=== PATIENT | male | born 1945 | race Caucasian/White ===

== ENCOUNTER → 2023-06-05 14:39 | Outpatient (REF) | payer OTHER, SELFPAY | LOC: RAD 14:39 | PROVIDERS: ATTENDING PHYSICIAN Surgery Vascular Surgery; FAMILY PHYSICIAN Family Medicine | DX: I65.21 Occlusion and stenosis of right carotid artery (principal) | CPT/HCPCS: 70496; 70498; Q9967 ==

== ENCOUNTER 2023-06-06 11:04 | Inpatient (IN) | payer OTHER, SELFPAY ==
[2023-06-06 07:33] VITALS: BP 124/87
--- NOTE | 2023-06-06 08:08 | ED.GENMED ---
History of Present Illness
<MIRTA Jackman - Last Filed: 06/06/23 15:35>
General
Chief Complaint: Breathing Problem
Source: patient
Exam Limitations: none
Time Seen by Provider: 06/06/23 07:48
Nursing documentation reviewed up to this point in time: agreed with
Travel History
Have you had any contact with someone who has COVID-19?: No
Do you have any symptoms of coronavirus? Fever > 100 degrees, chills, cough, shortness of breath, sore throat, loss of taste or smell, muscle aches, or headache?: No
History of Present Illness
History of Present Illness:
77 yr. old male w/ hx of COPD presents to the ED with complaints of shortness of breath. Patient complains of worsening shortness of breath for the past week. He has not been able to sleep. He also complains of no appetite. He denies any
actual fever or chills. He has been using inhalers have not been improving his symptoms. He does not normally wear oxygen. He is a former smoker.
Past History
<MIRTA Jackman - Last Filed: 06/06/23 15:35>
Past History
ED Past Medical History: COPD, Hypercholesterolemia and Other (Diverticulitis)
ED Past Surgical History: Urological (TURP August 2017 Dr. Bullock)
Social History
Tobacco: Smoker
Alcohol: None
Drug: None
Living: with family
Review of Systems
<MIRTA Jackman - Last Filed: 06/06/23 15:35>
Review of Systems
Allergies reviewed?: Yes
All Other Systems: ROS reviewed and negative except as documented in HPI and ROS
Constitutional: Denies fever, fatigue or chills
EENT: Reports no symptoms
Respiratory: Reports cough and trouble breathing
Cardiac: Reports no symptoms
ABD/GI: Reports other (decreased appetite )
Musculoskeletal: Reports no symptoms
Skin: Reports no symptoms
Neurological: Reports no symptoms
Hematologic/Lymphatic: Reports no symptoms
Psychiatric: Reports no symptoms
Phy Exam
<MIRTA Jackman - Last Filed: 06/06/23 15:35>
General Physical Exam
General Presentation: no apparent distress
General age: appears stated age
General Skin: warm and dry
General Habitus: normal
General Mental: alert
General Hydration: appears well hydrated
Cardiovascular Exam
Cardiovascular Exam: regular rate/rhythm, no murmur and normal peripheral pulses
Pulmonary Exam
Pulmonary Exam: no respiratory distress, decreased breath sounds and other (+ cough )
Neurological Exam
Neurological Exam: alert and oriented x3
Musculoskeletal Exam
Musculoskeletal Exam: full ROM
Skin Exam
Skin Exam: normal color and warm/dry
Psychiatric Exam
Psychiatric Exam: normal mood/affect
Scores
<MIRTA Jackman - Last Filed: 06/06/23 15:35>
Heart Failure Risk
Heart Failure Risk Score: Not Applicable
Course
<MIRTA Jackman - Last Filed: 06/06/23 15:35>
Orders/Labs/Results
Orders:
Orders
06/06/23 08:02
Albuterol Sulfate [Ventolin Nebules] 7.5 mg INH R NOW STA
Ipratropium Nebs [Atrovent Nebules] 1 mg INH R NOW STA
06/06/23 08:03
Cardiac Monitoring- Treatment ONCE
IV Insert/Care/Rem.- Treatment PRN
Dexamethasone Sod Phosphate [Decadron] 10 mg IV NOW STA
06/06/23 08:04
Electrocardiogram (*1) Stat
Reason for Study: Abdominal Pain
EKG- Treatment ONCE
06/06/23 08:07
Chest [CR Chest - 2 Views ] Urgent
Comment:
Reason For Exam: sob
06/06/23 08:16
Complete Blood Count/With Diff Urgent
Comprehensive Metabolic Panel Urgent
Pro-BNP [NT-proBNP] Urgent
Troponin I Urgent
06/06/23 Lunch
Regular
At Your Request: Full Participation
06/06/23 10:47
Admit/Transfer Patient As Directed
Co-Sign Provider:
Level of Care: Inpatient admission
Assign to:: Telemetry
Physician / Group: hosp
Diagnosis: COPD exacerbation
Reason for Telemetry: Medication for Arrhythmia
Date to Stop Telemetry: 06/08/23
Time to Stop Telemetry: 11:00
Reason for Hospitalization: COPD exacerbation
Expected length of stay greater than two midnights?: Yes
ELOS- Estimated Length of Stay in days: 2
I certify the patient meets the requirements for IP care: Yes
06/06/23 10:48
Code Status As Directed
Resuscitation Status: Do not resuscitate
Reached after discussion with pt or family/Healthcare POA: Yes
06/06/23 10:49
DNR Bracelet Application ONCE
06/06/23 10:53
PULMONARY CONSULT Routine
Consulting Provider: Erik Donohue
Was physician already notified: Yes
06/06/23 10:54
Echo 2D MMode Color/Doppler [Echo 2D MMode Color/Doppler] Routine
Reason for Study: murmur/ MUNOZ
06/06/23 11:59
0.9% Sodium Chloride 1000 ml [Nss] 1,000 ml IV 60 mls/hr
Acetaminophen [Tylenol] 650 mg PO Q4HPRN PRN
Ipratropium/Albuterol Sulfate [Duoneb] 3 ml INH R Q4HPRN PRN
06/06/23 11:59
Activity As Directed
Activity Level: Out of Bed- Chair
Vital Signs As Directed
Frequency: Per unit guidelines
Pulse Ox/spot Check [RESP] Routine
Quantity: 1
DX Deep Vein Thrombosis Video Routine
06/06/23 12:00
Ipratropium/Albuterol Sulfate [Duoneb] 3 ml INH R QID
06/06/23 12:30
Vit C/Vit E/Lutein/Min/Mobile-3 [Ocuvite Softgel] 1 cap PO MoWeFr@0800
06/06/23 13:58
Urine Creatinine Routine
Date Specimen was Collected: 06/06/23
Time Specimen was Collected: 13:51
Urine Osmolality Random [Osmolality, Random Urine] Routine
Date Specimen was Collected: 06/06/23
Time Specimen was Collected: 13:51
Urine Sodium Routine
Date Specimen was Collected: 06/06/23
Time Specimen was Collected: 13:51
06/06/23 16:00
Dexamethasone Sod Phosphate [Decadron] 4 mg IV Q8H
06/06/23 18:00
Enoxaparin Sodium [Lovenox] 40 mg SC QPM
Rosuvastatin Calcium [Crestor] 40 mg PO Q48H
06/06/23 20:00
Budesonide [Pulmicort] 0.25 mg INH R BID
06/07/23 06:00
Basic Metabolic Panel IN AM
Complete Blood Count/No Diff IN AM
06/08/23 11:00
DC Protocol for Telemetry ONCE
Abnormal Lab Results
06/06/23
08:16
RBC 4.62 L 10^6/uL
(4.70-6.10)
MCH 31.8 H pg
(27.0-31.0)
Absolute Lymphs (auto) 1.0 L 10^3/uL
(1.2-3.4)
Lymphocytes % 18.8 L %
(20.5-51.1)
Monocytes % 10.4 H %
(1.7-9.3)
Sodium 128 L mmol/L
(135-145)
Chloride 94 L mmol/L
(98-107)
Creatinine 0.6 L mg/dL
(0.7-1.3)
06/06/23 08:16
06/06/23 08:16
Vital Signs
Initial and Last Documented VS:
Initial Vital Signs
Temp Pulse Resp BP Pulse Ox
98.2 F 73 16 124/87 98
06/06/23 07:33 06/06/23 07:33 06/06/23 07:33 06/06/23 07:33 06/06/23 07:33
Last Documented Vital Signs
Temp Pulse Resp BP Pulse Ox
98.1 F 94 74 120/82 94
06/06/23 12:11 06/06/23 12:15 06/06/23 12:15 06/06/23 12:11 06/06/23 12:15
Chemical Research Worker consulted with Physician
Chemical Research Worker consulted with physician?: Yes
Name of Physician Consulted: Marly
<Jhon Luke, DO - Last Filed: 06/06/23 13:56>
Orders/Labs/Results
Orders:
Orders
06/06/23 08:02
Albuterol Sulfate [Ventolin Nebules] 7.5 mg INH R NOW STA
Ipratropium Nebs [Atrovent Nebules] 1 mg INH R NOW STA
06/06/23 08:03
Cardiac Monitoring- Treatment ONCE
IV Insert/Care/Rem.- Treatment PRN
Dexamethasone Sod Phosphate [Decadron] 10 mg IV NOW STA
06/06/23 08:04
Electrocardiogram (*1) Stat
Reason for Study: Abdominal Pain
EKG- Treatment ONCE
06/06/23 08:07
Chest [CR Chest - 2 Views ] Urgent
Comment:
Reason For Exam: sob
06/06/23 08:16
Complete Blood Count/With Diff Urgent
Comprehensive Metabolic Panel Urgent
Pro-BNP [NT-proBNP] Urgent
Troponin I Urgent
06/06/23 Lunch
Regular
At Your Request: Full Participation
06/06/23 10:47
Admit/Transfer Patient As Directed
Co-Sign Provider:
Level of Care: Inpatient admission
Assign to:: Telemetry
Physician / Group: hosp
Diagnosis: COPD exacerbation
Reason for Telemetry: Medication for Arrhythmia
Date to Stop Telemetry: 06/08/23
Time to Stop Telemetry: 11:00
Reason for Hospitalization: COPD exacerbation
Expected length of stay greater than two midnights?: Yes
ELOS- Estimated Length of Stay in days: 2
I certify the patient meets the requirements for IP care: Yes
06/06/23 10:48
Code Status As Directed
Resuscitation Status: Do not resuscitate
Reached after discussion with pt or family/Healthcare POA: Yes
06/06/23 10:49
DNR Bracelet Application ONCE
06/06/23 10:53
PULMONARY CONSULT Routine
Consulting Provider: Erik Donohue
Was physician already notified: Yes
06/06/23 10:54
Echo 2D MMode Color/Doppler [Echo 2D MMode Color/Doppler] Routine
Reason for Study: murmur/ MUNOZ
06/06/23 11:59
0.9% Sodium Chloride 1000 ml [Nss] 1,000 ml IV 60 mls/hr
Acetaminophen [Tylenol] 650 mg PO Q4HPRN PRN
Ipratropium/Albuterol Sulfate [Duoneb] 3 ml INH R Q4HPRN PRN
06/06/23 11:59
Activity As Directed
Activity Level: Out of Bed- Chair
Vital Signs As Directed
Frequency: Per unit guidelines
Pulse Ox/spot Check [RESP] Routine
Quantity: 1
DX Deep Vein Thrombosis Video Routine
06/06/23 12:00
Ipratropium/Albuterol Sulfate [Duoneb] 3 ml INH R QID
06/06/23 12:30
Vit C/Vit E/Lutein/Min/Mobile-3 [Ocuvite Softgel] 1 cap PO MoWeFr@0800
06/06/23 13:58
Urine Creatinine Routine
Date Specimen was Collected: 06/06/23
Time Specimen was Collected: 13:51
Urine Osmolality Random [Osmolality, Random Urine] Routine
Date Specimen was Collected: 06/06/23
Time Specimen was Collected: 13:51
Urine Sodium Routine
Date Specimen was Collected: 06/06/23
Time Specimen was Collected: 13:51
06/06/23 16:00
Dexamethasone Sod Phosphate [Decadron] 4 mg IV Q8H
06/06/23 18:00
Enoxaparin Sodium [Lovenox] 40 mg SC QPM
Rosuvastatin Calcium [Crestor] 40 mg PO Q48H
06/06/23 20:00
Budesonide [Pulmicort] 0.25 mg INH R BID
06/07/23 06:00
Basic Metabolic Panel IN AM
Complete Blood Count/No Diff IN AM
06/08/23 11:00
DC Protocol for Telemetry ONCE
Abnormal Lab Results
06/06/23
08:16
RBC 4.62 L 10^6/uL
(4.70-6.10)
MCH 31.8 H pg
(27.0-31.0)
Absolute Lymphs (auto) 1.0 L 10^3/uL
(1.2-3.4)
Lymphocytes % 18.8 L %
(20.5-51.1)
Monocytes % 10.4 H %
(1.7-9.3)
Sodium 128 L mmol/L
(135-145)
Chloride 94 L mmol/L
(98-107)
Creatinine 0.6 L mg/dL
(0.7-1.3)
06/06/23 08:16
06/06/23 08:16
Vital Signs
Initial and Last Documented VS:
Initial Vital Signs
Temp Pulse Resp BP Pulse Ox
98.2 F 73 16 124/87 98
06/06/23 07:33 06/06/23 07:33 06/06/23 07:33 06/06/23 07:33 06/06/23 07:33
Last Documented Vital Signs
Temp Pulse Resp BP Pulse Ox
98.1 F 94 74 120/82 94
06/06/23 12:11 06/06/23 12:15 06/06/23 12:15 06/06/23 12:11 06/06/23 12:15
<MIRTA Jackman - Last Filed: 06/06/23 15:35>
MDM/Problems Addressed
Differential Diagnosis Includes:
Not limited to COPD exacerbation, pneumonia, less likely CHF
MDM/Problems Addressed:
Patient with COPD former smoker presents with shortness of breath/dyspnea on exertion. On exam patient has decreased air movement. Patient was given hour-long neb steroids, decadron however with require admission with decreased air movement.
former heavy smoker . In addition patient also is hyponatremic with a sodium of 128.
Chronic conditions affecting care:
copd former smoker
<MIRTA Jackman - Last Filed: 06/06/23 15:35>
*Radiology
Radiology exam reviewed: radiology read reviewed
*Pulse Oximetry
Patient hypoxic: no
*EKG
Interpreted by ED Provider?: Yes
Heart Rate: 65
Rate: normal
Rhythm: sinus
Ischemia: non-specific ST changes
*Critical Care Note
Total Time (30-74mins, 75-104mins- exclusive of procedures): Not Applicable
Data Reviewed
Review of Other/Old Records Reveals: Other (Nuclear stress test from 2019 positive for ischemia; echo from 2021 neg nml LV EF 60-65%)
ED Attending Note
<MIRTA Jackman - Last Filed: 06/06/23 15:35>
-
Portions of this chart may have been created with voice recognition software.� Occasional wrong word or��sound alike� substitutions may have occurred due to the inherent limitations of voice recognition software.
<Jhon Luke DO - Last Filed: 06/06/23 13:56>
ED Attending Note
Patient seen and examined by attending physician: Yes
I performed the substantive portion of visit, reviewed & personally made and approve the management plan that is documented in note by myself or RYNE.: Yes
ED Attending Note:
Patient is a 77-year-old male presents to the emergency department increasing shortness of breath over the past couple days especially on exertion. Patient also developed chest pain on exertion over the past couple of days. Patient denies fever or
chills patient is a cough that is getting worse and is occasionally productive. Patient denies fever or chills. Patient denies any increasing edema. Patient admits to decreased appetite but no GI symptoms otherwise. On physical exam the patient
is tachypneic and is having difficulty completing a sentence before taking a breath. Patient's neck is supple without neck vein distention. Patient has diminished airflow throughout his lung baig with inspiratory and expiratory wheezing.
Patient's chest is nonreproducible tenderness. Heart is regular and distant. Abdomen soft nontender. Extremities without edema or cyanosis. Patient appears to have an exacerbation of his COPD with possible CHF. Patient did have a abnormal
nuclear stress test about 4 years ago which may have consequences for his chest pain. Patient will be admitted. Patient did not improve with steroids and nebulizers but will need further treatment inpatient.
Discharge Plan
Departure
Patient Disposition: Admit
Date of Disposition: 06/06/23
Time of Disposition: 09:34
Admit to: Telemetry
Admit to doctor: hospitalist
Presentation/result/management discussed w/ accepting MD/DO: Hospitalist
Patient with high blood pressure during this ER visit?: Yes
Condition: Fair
Covid-19: Not Applicable
Discharge Problem:
Acute exacerbation of chronic obstructive pulmonary disease, Acute dyspnea
Interventions
Interventions:
*Risk Screen - Suicide Last Done: 06/06/23 07:33
*General Assessment Last Done: 06/06/23 11:00
*Neglect/Abuse Screening Last Done: 06/06/23 11:00
ED- Fall Risk Assessment Last Done: 06/06/23 12:00
*ED COVID-19 Vaccine History Last Done: 06/06/23 07:33
*Nursing Disposition Last Done: 06/06/23 11:00
ED- Cardiac Assessment Last Done: 06/06/23 09:30
ED- Pulmonary Assessment Last Done: 06/06/23 07:57
Discharge Date and Time
Discharge Date/Time: 06/06/23 12:00
[2023-06-06] MEDS: VENTOLIN NEBULES 7.5 MG INH (08:22)
[2023-06-06] MEDS: DECADRON 10 MG IV (08:23)
[2023-06-06] MEDS: ATROVENT NEBULES 1 MG INH (08:23)
[2023-06-06 08:26] LABS: % Basophils 0.5 % (0-2); % Eosinophils 2.7 % (0-6); % Immature Granulocytes 0.2 % (0-0.5); % Lymphocytes 18.8 % (20.5-51.1); % Monocytes 10.4 % (1.7-9.3); % Neutrophils 67.4 % (42.2-75.2); Absolute Eosinophils 0.2 10^3/uL (0-0.7); Absolute Monocytes 0.6 10^3/uL (0.1-0.6); Absolute Neutrophils 3.7 10^3/uL (1.4-6.5); Hematocrit 41.9 % (39.0-52.0); Hemoglobin 14.7 g/dL (13.0-18.0); Mean Corp Hgb Conc. 35.1 g/dL (33.0-37.0); Mean Corpuscular Hgb 31.8 pg (27.0-31.0); Mean Corpuscular Volume 90.7 fL (80.0-94.0); Mean Platelet Volume 8.8 fL (7.4-10.4); Nucleated Red Blood Cells % 0 % (-); Platelet Count 229 10^3/uL (130-400); Red Blood Cell Count 4.62 10^6/uL (4.70-6.10); Red Cell Dist. Width 13.2 % (11.5-14.5); White Blood Cell Count 5.5 10^3/uL (4.8-10.8)
[2023-06-06 08:39] LABS: ALT (SGPT) 30 U/L (0-50); AST (SGOT) 33 U/L (17-59); Alkaline Phosphatase 89 U/L (38-126); Blood Urea Nitrogen 10 mg/dl (9-20); Calcium 8.9 mg/dl (8.4-10.2); Carbon Dioxide 28 mmol/L (22-30); Chloride 94 mmol/L (98-107); Glucose 98 mg/dl (70-99); Potassium 4.2 mmol/L (3.5-5.1); Sodium 128 mmol/L (135-145); Total Bilirubin 0.5 mg/dl (0.2-1.3); Total Protein 6.3 g/dl (6.3-8.2); eGFR > 60.00
[2023-06-06 08:51] LABS: NT-proBNP 27.7 pg/ml; Troponin I < 0.012 ng/ml
--- NOTE | 2023-06-06 11:06 | HPS.HSE ---
Family Physician
-
Family Physician: Anders Randle
Chief Complaint
-
Shortness of breath for the last 6 weeks worse in the last 24 hours
History of Present Illness
77 yr. old male w/ hx of� COPD presents to the ED� with� complaints of� shortness of breath.� Patient complains of worsening shortness of breath for the past week.� He has not been able to sleep.� He also complains of no appetite.� He denies any
actual fever or chills.� He has been using inhalers have not been improving his symptoms.� He does not normally wear oxygen.� He is a former smoker. Quit some 2 years ago he actually states from my interview with he has been short of breath for
last 6 weeks and was actually seen by his PCP and prescribed a steroid course for he got better but shortness of breath and became worse the last couple of days. He was tested last week for COVID and influenza finding it negative. He follows with
Dr. Sue on the pulmonary service but seen infrequently and cannot remember the last time he saw her. He has no cardiac issue history although he has been told he has a heart murmur.
Medical History
Past Medical History
Past Medical History: Reports COPD and Hypercholesterolemia
Past Surgical History: Reports None
Social History
Tobacco: Former Smoker
Alcohol: None
Drug: None
Personal: Single
Living: With Family
Family History
Family History: Not pertinent
Allergies / Home Medications
Allergies reflects when Allergies were last updated in [facility].
Home Medications with original date entered in [facility]
Allergy/Medication List:
Allergies
Allergy/AdvReac Type Severity Reaction Status Date / Time
naproxen Allergy Rash/ankle Verified 06/06/23 07:35
swelling
Home Medications
fluticasone fur. 200 mcg-umeclid 62.5 mcg-vilant 25 mcg inhalat.powder (Trelegy Ellipta) 1 inh IH R DAILY SOB 03/28/21
multivitamin with folic acid 400 mcg tablet (Tab-A-Fifi) 1 tab PO DAILY Supplement 03/28/21
vit C 250 mg-vit E 90 mg-zinc 40 mg-copper 1 uh-byivwt-yjectj capsule (PreserVision AREDS-2) 1 ea PO MOWEFR Supplement 03/28/21
rosuvastatin 40 mg tablet (Crestor) 40 mg PO Q48H 06/06/23
sildenafil 50 mg tablet 50 mg PO DAILY PRN ed 06/06/23
Review of Systems
-
History Source: Patient
Constitutional: Reports See HPI
EENT: Reports See HPI
Respiratory: Reports Trouble Breathing (Worse in the last week but has been ongoing for almost 2 months); Denies Cough or Hemoptysis
Cardiac: Reports No Symptoms
Abdomen/GI: Reports No Symptoms
: Reports No Symptoms
Psych: Reports No Symptoms
Physical Exam
Vital Signs
Vital Signs
Temp Pulse Resp BP Pulse Ox
98.2 F 79 18 124/87 97
06/06/23 07:33 06/06/23 09:30 06/06/23 09:30 06/06/23 07:33 06/06/23 09:30
Physical Exam
General: Well Developed
HEENT: NormoCephalic
Respiratory: Wheezes (Initially presented with bronchospasm now improved after neb treatment and steroid/not on oxygen presently and pulse ox is 90% on room air) and Decreased Breath Sounds
GI: Soft
Musculoskeletal: No Edema
Neuro: Awake
Psych: Calm
Laboratory Results
-
06/06/23 08:16
06/06/23 08:16
Laboratory Results
Total Bilirubin 0.5 mg/dl (0.2-1.3) 06/06/23 08:16
AST 33 U/L (17-59) 06/06/23 08:16
ALT 30 U/L (0-50) 06/06/23 08:16
Alkaline Phosphatase 89 U/L (38-126) 06/06/23 08:16
Troponin I < 0.012 ng/ml 06/06/23 08:16
Data Reviewed
-
Critical Care Time (in minutes): 56
Diagnostic Radiology: Report Reviewed by me (Underlying COPD seen no acute inflammatory process)
Lab Data: Labs Reviewed by me (Sodium 128 rest of chemistries within normal limits CBC okay no leukocytosis)
Impression/Plan
-
IMPRESSION:
77 yr. old male w/ hx of� COPD presents to the ED� with� complaints of� shortness of breath.� Patient complains of worsening shortness of breath for the past week.� He has not been able to sleep.� He also complains of no appetite.� He denies any
actual fever or chills.� He has been using inhalers have not been improving his symptoms.� He does not normally wear oxygen.� He is a former smoker. Quit some 2 years ago he actually states from my interview with he has been short of breath for
last 6 weeks and was actually seen by his PCP and prescribed a steroid course for he got better but shortness of breath and became worse the last couple of days. He was tested last week for COVID and influenza finding it negative. He follows with
Dr. Sue on the pulmonary service but seen infrequently and cannot remember the last time he saw her. He has no cardiac issue history although he has been told he has a heart murmur.
COPD with acute exacerbation
-Chest x-ray clear
-Reformed smoker x 2 years
-Prior history of COPD and follows with pulmonary
-Only medication management is with [facility]
-Had course of steroid management and taper some 6 weeks ago with some improvement but returned
-Tested for COVID and influenza negative last week/vaccinated
-Borderline hypoxia presently off oxygen
-Will treat with IV steroids, DuoNebs, budesonide
-Pulmonary consultation
Cardiac murmur
-No signs of CHF exacerbation
-BNP within normal limits
-No signs of fluid overload
-Obtain 2D echocardiogram/presented hypertensive
Hyponatremia
-Unclear etiology without prior history
-Obtain urine sodium and osmolality and creatinine
-Fluid restriction based on fractional excretion results
-Cautious course of IV fluids overnight as admits to poor appetite in the last week and could be low volume state
Hypercholesterolemia
-Continue statin
DVT prophylaxis with Lovenox
DNR/DNI per patient's request
[2023-06-06 11:31] VITALS: BP 121/76
[2023-06-06] MEDS: DUONEB 3 ML INH ×3 (12:08→19:40)
[2023-06-06 12:11] VITALS: BP 120/82
[2023-06-06 12:17] VITALS: BMI 22.1
[2023-06-06] MEDS: NSS 1000 IV (12:29)
--- NOTE | 2023-06-06 12:49 | CON.PUL ---
Consultation
Consultation Request
Date/Time Consultation Requested: 06-06-23
Date/Time Consultation Performed: 06-06-23
Requesting Provider: Hospitalist
Performing Provider: Dr Donohue
Reason for Consultation: dyspnea
Medical History
-
Chief Complaint: dyspnea
History of Present Illness:
Mr Renard TRUJILLO is a 77/M adm 06-06 with 6 wks h/o dyspnea with worsening the past one wk.
Seen by PCP, given a course of CS with initial improvement than then disappeared, tested negative COVID and flu last wk.
Adm with [facility], started on BDs and CS
Follows [facility], on trelegy
Past Medical History
Past Medical History: Other (see A&P for PMH/PSH)
Social History
Tobacco: Former Smoker
Alcohol: None
Drug: None
Personal: Single
Living: With Family
Family History
Family History: Reviewed & Not Pertinent
Allergies / Home Medications
Allergies
Allergy/AdvReac Type Severity Reaction Status Date / Time
naproxen Allergy Rash/ankle Verified 06/06/23 07:35
swelling
Home Medications
Medication Instructions Recorded Confirmed Last Taken Type
fluticasone fur. 200 mcg-umeclid 1 inh IH R DAILY SOB 03/28/21 06/06/23 06/06/23 History
62.5 mcg-vilant 25 mcg
inhalat.powder (Trelegy Ellipta)
multivitamin with folic acid 400 1 tab PO DAILY Supplement 03/28/21 06/06/23 06/05/23 History
mcg tablet (Tab-A-Fifi)
vit C 250 mg-vit E 90 mg-zinc 40 1 ea PO MOWEFR Supplement 03/28/21 06/06/23 03/25/21 History
mg-copper 1 os-osmeei-auwehl
capsule (PreserVision AREDS-2)
rosuvastatin 40 mg tablet (Crestor) 40 mg PO Q48H High Cholesterol 06/06/23 06/06/23 Unknown History
sildenafil 50 mg tablet 50 mg PO DAILY PRN ed 06/06/23 06/06/23 Unknown History
Review of Systems
-
History Source: Patient
All other systems: Negative unless noted
Respiratory: Trouble Breathing
Vitals / Labs / Diagnostic Testing
Vital Signs
Temp Pulse Resp BP Pulse Ox
98.1 F 94 74 120/82 94
06/06/23 12:11 06/06/23 12:15 06/06/23 12:15 06/06/23 12:11 06/06/23 12:15
Lab Data
06/06/23 08:16
06/06/23 08:16
Diagnostic Testing:
Physical Exam
-
HEENT: Normocephalic and Moist Mucous Membranes
Cardiovascular: Regular Rhythm, Murmur (n), Peripheral Edema (n) and Calf Tenderness (n)
Respiratory: Wheeze and Rhonchi
GI: Soft, Non Distended and Non Tender
Neurology: Awake, Oriented and No Motor Deficits
General: Respiratory Distress
Assessment
-
Assessment:
Mr Renard TRUJILLO is a 77/M adm [birth year] with 6 wks h/o dyspnea with worsening the past one wk. Seen by PCP, given a course of CS with initial improvement than then disappeared, tested negative COVID and flu last wk.
Impression:
AECOPD
Hyponatremia
Normal troponin and BNP
RCA occlusion
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
COPD, very severe emphysema. On
HLD
Former smoker
Plan:
Currently POC POx 94% on RA at rest
Former heavy smoker: 2-3 ppd since age 17 to 67
Follows [facility] (severe COPD), last visit June 2022, on with reported good compliance, due to return in June 2023
Continue dexam IV, reevaluate dose and route on a daily basis
Continue DNs qid and prn
OK to continue budesonide
Eventually will return to trelegy (fluticasone/umeclidinium/vilanterol)
Acapella valve, mucolytic added
Empiric atb rec: doxycycline
D/w patient evidence of severe emphysema on chest CT
Agrees to pulm f/u upon d/c
Diagnostic tests:
CXR 06-06-23, emphysematous lung baig, flat diaphragms, no infiltrates
H/N CTA 06-05-23
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
The bilateral common and internal carotid arteries are otherwise grossly patent with only mild scattered calcific plaque in the left carotid bulb.
Redemonstration of short segment approximately 50% stenosis of the proximal left subclavian artery
LDCT chest July 2022
IMPRESSION:
There are 2 tiny 1 mm nodules, unchanged in retrospect when compared to 2020. Therefore likely benign.
Severe emphysema.
TTE Sept 2021, normal biventricular function
[2023-06-06 14:18] LABS: Osmolality Urine 213 mOsm/kg (300-900)
[2023-06-06 14:40] LABS: Urine Sodium 31 mmol/L (30-90)
[2023-06-06 15:00] VITALS: BP 124/80
[2023-06-06] MEDS: DECADRON 4 MG IV (16:57)
[2023-06-06] MEDS: OCUVITE SOFTGEL 1 CAP PO (16:57)
[2023-06-06] MEDS: CRESTOR 40 MG PO (17:52)
[2023-06-06] MEDS: LOVENOX 40 MG SC (17:52)
[2023-06-06] MEDS: PULMICORT 0.25 MG INH (19:41)
[2023-06-06 19:55] VITALS: BP 154/85
[2023-06-06] MEDS: VIBRAMYCIN 100 MG PO (22:35)
[2023-06-06] MEDS: MELATONIN 5 MG PO (22:36)
[2023-06-06] MEDS: MUCINEX 600 MG PO (22:36)
[2023-06-06 23:04] VITALS: BP 133/88
[2023-06-07] MEDS: DECADRON 4 MG IV ×3 (01:23→16:50)
[2023-06-07] MEDS: FLUSH (NSS) 1 FLUSH IV (01:26)
[2023-06-07] MEDS: NSS 1000 IV (04:55)
[2023-06-07 06:36] VITALS: BMI 22.0
[2023-06-07 06:54] LABS: Hematocrit 38.7 % (39.0-52.0); Hemoglobin 13.8 g/dL (13.0-18.0); Mean Corp Hgb Conc. 35.7 g/dL (33.0-37.0); Mean Corpuscular Hgb 32.5 pg (27.0-31.0); Mean Corpuscular Volume 91.1 fL (80.0-94.0); Mean Platelet Volume 9.2 fL (7.4-10.4); Platelet Count 229 10^3/uL (130-400); Red Blood Cell Count 4.25 10^6/uL (4.70-6.10); Red Cell Dist. Width 13.2 % (11.5-14.5); White Blood Cell Count 4.3 10^3/uL (4.8-10.8)
[2023-06-07 07:15] LABS: Blood Urea Nitrogen 13 mg/dl (9-20); Calcium 9.3 mg/dl (8.4-10.2); Carbon Dioxide 25 mmol/L (22-30); Chloride 96 mmol/L (98-107); Estimated Creatinine Clearance 107 ml/min; Glucose 134 mg/dl (70-99); Potassium 4.3 mmol/L (3.5-5.1); Sodium 131 mmol/L (135-145); eGFR > 60.00
[2023-06-07] MEDS: PULMICORT 0.25 MG INH ×2 (07:24→19:56)
[2023-06-07] MEDS: DUONEB 3 ML INH ×5 (07:24→19:56)
[2023-06-07 07:33] VITALS: BP 129/81
--- NOTE | 2023-06-07 08:46 | W.PN.HOSP.TC ---
Today's Communication/Plan
-
Continue IV steroids with reduced Decadron to every 12
Continue nebs and budesonide/Zithromax anti-inflammatory
Increase activity
2D echocardiogram results reviewed and stable
Will give another day of IV fluids and discontinue
Recheck BMP in a.m. to assess for sodium
Assessment / Plan
Assessment / Plan
77 yr. old male w/ hx of� COPD presents to the ED� with� complaints of� shortness of breath.� Patient complains of worsening shortness of breath for the past week.� He has not been able to sleep.� He also complains of no appetite.� He denies any
actual fever or chills.� He has been using inhalers have not been improving his symptoms.� He does not normally wear oxygen.� He is a former smoker.� Quit some 2 years ago he actually states from my interview with he has been short of breath for
last 6 weeks and was actually seen by his PCP and prescribed a steroid course for he got better but shortness of breath and became worse the last couple of days.� He was tested last week for COVID and influenza finding it negative.� He follows with
Dr. Sue on the pulmonary service but seen infrequently and cannot remember the last time he saw her.� He has no cardiac issue history although he has been told he has a heart murmur.
COPD with acute exacerbation
-Chest x-ray clear
-Reformed smoker x 2 years
-Prior history of COPD and follows with pulmonary
-Only medication management is with [facility]
-Had course of steroid management and taper some 6 weeks ago with some improvement but returned
-Tested for COVID and influenza negative last week/vaccinated
-Borderline hypoxia presently off oxygen
-Will treat with IV steroids, DuoNebs, budesonide
-Pulmonary consultation appreciated
Cardiac murmur
-No signs of CHF exacerbation
-BNP within normal limits
-No signs of fluid overload
-Obtain 2D echocardiogram/reviewed and no change from prior study of 2021
Hyponatremia/
-Unclear etiology without prior history
-Fractional excretion of sodium is 0.33%
-Cautious course of IV fluids overnight as admits to poor appetite in the last week and could be low volume state
-Would give 1 more day of cautious IV fluids
Hypercholesterolemia
-Continue statin
DVT prophylaxis with Lovenox
DNR/DNI per patient's request
Anticipated Discharge: 24 - 48 hours
Subjective/Interval History
-
Date of Service: June 07, 2023
Somewhat better less dyspnea and shortness of breath dry nonproductive cough not on oxygen
Objective Data
-
Labs:
Laboratory Results
06/07/23
06:30
WBC 4.3 L
Hgb 13.8
Hct 38.7 L
Plt Count 229
Sodium 131 L
Potassium 4.3
Chloride 96 L
Carbon Dioxide 25
BUN 13
Creatinine 0.5 L
Glucose 134 H
Calcium 9.3
Vital Signs:
Vital Signs
Temp Pulse Resp BP Pulse Ox
97.6 F 72 16 129/81 92
06/07/23 07:33 06/07/23 07:33 06/07/23 07:33 06/07/23 07:33 06/07/23 07:33
I&O
06/06/23 06/07/23 06/08/23
06:59 06:59 06:59
Intake Total 1440 / 1440
Balance 1440 / 1440
Review of Systems
-
History Source: Patient
Constitutional: Reports No Symptoms
EENT: Reports No Symptoms Reported
Respiratory: Reports Cough
Cardiac: Reports No Symptoms
Abdomen/GI: Reports No Symptoms
Musculoskeletal: Reports No Symptoms
Skin: Reports No Symptoms
Neuro: Reports No Symptoms
Physical Exam
-
General: Well Developed
HEENT: Normocephalic
Respiratory: Wheezes
Cardiac: Regular Rhythm
GI: Soft, Nontender and Nondistended
Skin: Warm
Neuro: Awake
Psych: Calm
Data Reviewed
-
Total Time Spent with Patient (in minutes): 56
Diagnostic Radiology: Report Reviewed by me
Medical Tests (Nuc Med, Echo etc): Report Reviewed by me (Not much change from prior study of December 2021)
Labs: Labs Reviewed by me (Sodium improved to 131)
[2023-06-07] MEDS: MUCINEX 600 MG PO ×2 (08:51→21:35)
[2023-06-07] MEDS: VIBRAMYCIN 100 MG PO ×2 (08:51→21:34)
[2023-06-07 11:00] VITALS: BP 168/90
--- NOTE | 2023-06-07 11:49 | RESPNOTE ---
Patient walked approximately 25 ft to bathroom and immediately returned to bed in tripod position; stated he couldn't breathe. Nurse called for PRN nebulizer in between scheduled treatments after patient ate breakfast due to SOB. Patient appears
sensitive to very little exertion. Sats low 90's post event on RA, however increased WOB noted. Nurse aware.
--- NOTE | 2023-06-07 12:38 | CM ---
Reviewed chart, met with patient to obtain information for assessment. Patient stated that he lives alone on the second floor of a two story home with 10 steps to enter. Patient denied any difficulty with steps.
Patient described himself as independent with his ADLs, personal care, bathing and dressing. 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
Patient denied any DME in his home. He drives and can get to all of his appointments and do his own shopping.
He has never had VN services. He hasn't been to a SNF.
Patient has a prescription plan and uses [facility] in [place] for all of her medications.
His PCP is Dr. Erik Donohue.
Patient feels like he can go home when he stable. He denies any DME or nebulizers at home and is hoping that he does not need o2 upon discharge.
Plan: Case management will continue to follow and assist with discharge planning. Patient would like to return home when stable. Will watch for o2 needs.
--- NOTE | 2023-06-07 14:57 | W.PN.PUL3 ---
Today's Communication / Plan
-
O2
BDs
CS
Atb
Acapella
Assessment
-
Assessment:
Mr Renard TRUJILLO is a 77/M adm 06-06 with 6 wks h/o dyspnea with worsening the past one wk. Seen by PCP, given a course of CS with initial improvement than then disappeared, tested negative COVID and flu last wk.
Impression:
AECOPD
Hyponatremia
Normal troponin and BNP
RCA occlusion
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
COPD, very severe emphysema. On trelegy
HLD
Former smoker
Plan:
TWISTER DOFFER called due to worsening dyspnea in spite of POx 95% on RA, c/o sore throat, sensation of throat 'closing off', no stridor noted, no drooling
Improved after BD neb, seen after TWISTER DOFFER episode
Anxious, c/o sore throat, no acute findings on oropharyngeal examination
Currently POC POx 96% on O2 1L at rest
Former heavy smoker: 2-3 ppd since age 17 to 67
Follows [facility] Dr Oglesby (severe COPD), last visit June 2022, on tregy with reported good compliance, due to return in June 2023
Bedside spirometry 06-06 with severe obstruction with marginal response to BD
Continue dexam IV at 4 mg IV q8, reevaluate dose and route on a daily basis
Continue DNs qid and prn
OK to continue budesonide
[facility]fl[facility]/umeclidinium/vilanterol)
Acapella valve, mucolytic added. Correct acapella technique and pursed lip breathing discussed
Empiric atb rec: doxycycline, started 06-06, continue to mplete 5 d course
TTE 06-06 with normal biventricular function
D/w patient evidence of severe emphysema on chest CT
D/w patient, Dr Morales and RN after TWISTER DOFFER
Diagnostic tests:
CXR 06-06-23, emphysematous lung baig, flat diaphragms, no infiltrates
H/N CTA 06-05-23
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
The bilateral common and internal carotid arteries are otherwise grossly patent with only mild scattered calcific plaque in the left carotid bulb.
Redemonstration of short segment approximately 50% stenosis of the proximal left subclavian artery
LDCT chest July 2022
IMPRESSION:
There are 2 tiny 1 mm nodules, unchanged in retrospect when compared to 2020. Therefore likely benign.
Severe emphysema.
TTE Dec 2021, normal biventricular function
Subjective Data
-
Date of Service:
Date of Service: June 07, 2023
Chief Complaint: Pulmonary Follow Up
Subjective:
TWISTER DOFFER called due to worsening dyspnea in spite of POx 95% on RA, c/o sore throat, sensation of throat 'closing off', no stridor noted, no drooling
Improved after BD neb, seen after TWISTER DOFFER episode
Anxious, no CP, syncope, n/v
Review of Systems
General: Fever (n), Sweats (n), Chills (n) and Satisfactory Appetite (n)
HEENT: Epistaxis (n) and Dysphagia (n)
Cardiopulmonary: Dyspnea, Cough, Sputum Production (trace), Wheezing, Chest Pain (n), Edema (n) and Hemoptysis (n)
GI: Abdominal Pain (n), Nausea (n) and Vomiting (n)
Neuro: Weakness
Objective Data
Data Reviewed
Vital Signs / I&O / Oxygen:
Vital Signs
Temp Pulse Resp BP Pulse Ox
97.9 F 96 24 168/90 91
06/07/23 11:00 06/07/23 13:08 06/07/23 13:08 06/07/23 11:00 06/07/23 13:08
Intake and Output
06/06/23 06/07/2324
06:59 06:59 06:59
Intake Total 1440 / 1440
Balance 1440 / 1440
SaO2 91
Physical Exam
General: Respiratory Distress
HEENT: Normocephalic, Moist Mucous Membranes, Thrush (n) and Other (no drooling)
Cardiovascular: Regular Rhythm, Murmur (n), JVD (n), Peripheral Edema (n) and Calf Tenderness
Respiratory: Wheeze (trace), Crackles (n), Rhonchi, Accessory Resp Muscle Use (mild) and Stridor (n)
GI: Soft, Non Distended and Non Tender
Neurology: Awake, AO x 3 and No Motor Deficits
Skin: Dry
Labs/Micro/Reports
Lab Data
06/07/23 06:30
06/07/23 06:30
--- NOTE | 2023-06-07 15:13 | PTCARENOTE ---
pt c/o SOB having difficulty breathing, tripoding, increased RR. contacting RT
--- NOTE | 2023-06-07 15:20 | PTCARENOTE ---
p/t calling out for help stating he can't breathe, states he feels his throat is closing up. PO 84% on RA. Respiratory at bedside. Rapid response called @ 15:20. Stat Ativan administered, CXR, ABG, labs. RR extended over period of an hour D/T
persistent SOB and increased work of breathing. Pulmonary and attending arrived to rapid at 16:15 to review CXR and labs together. pt continues to demonstrate increased respiration rate and tripoding. This nurse expressed discomfort with patient
remaining at this level of care and advocated for higher level of care with UM and RR team.
[2023-06-07] MEDS: ATIVAN 0.5 MG IV (15:57)
[2023-06-07] MEDS: NSS (PRESERVATIVE FREE) 0.25 ML IV (15:58)
[2023-06-07 16:02] LABS: B.E. -0.6 mmol/L; HCO3 23.4 mmol/L (21-28); O2 Saturation % 98.9 % (94-98); PCO2 36 mmHg (35-48); PO2 97 mmHg (83-108); pH 7.42 (7.35-7.45)
[2023-06-07 16:03] LABS: Hematocrit 42.1 % (39.0-52.0); Hemoglobin 15.1 g/dL (13.0-18.0); Mean Corp Hgb Conc. 35.9 g/dL (33.0-37.0); Mean Corpuscular Hgb 32.8 pg (27.0-31.0); Mean Corpuscular Volume 91.3 fL (80.0-94.0); Mean Platelet Volume 9.2 fL (7.4-10.4); Platelet Count 278 10^3/uL (130-400); Red Blood Cell Count 4.61 10^6/uL (4.70-6.10); Red Cell Dist. Width 13.3 % (11.5-14.5); White Blood Cell Count 10.3 10^3/uL (4.8-10.8)
[2023-06-07 16:17] LABS: APTT 26.7 Sec (23.4-35.0); Blood Urea Nitrogen 14 mg/dl (9-20); Calcium 9.6 mg/dl (8.4-10.2); Carbon Dioxide 23 mmol/L (22-30); Chloride 94 mmol/L (98-107); Estimated Creatinine Clearance 107 ml/min; Glucose 149 mg/dl (70-99); INR 0.92; PT 12.4 Sec (11.4-14.6); Potassium 4.6 mmol/L (3.5-5.1); Sodium 131 mmol/L (135-145); eGFR > 60.00
[2023-06-07 16:27] LABS: Troponin I 0.017 ng/ml
--- NOTE | 2023-06-07 16:29 | W.PN.UPDATE ---
Update Note
Progress Note Update
Rapid response team called due to patient developing acute shortness of breath he was tripoding however pulse ox remained at or around 95 to percent on room air there is no active stridor or wheezing noted there was a significant component of
anxiety he has also had a complaint that he feels like his throat is closing. There is no evidence of very significant erythema exudate in his posterior pharynx/significant anxiety component was relieved with a dosage of Ativan will change back to
Decadron every 8 hours from every 12 that he had been reduced to and stop his IV fluids chest x-ray was reviewed by pulmonary
[2023-06-07] MEDS: LOVENOX 40 MG SC (16:51)
[2023-06-07 20:03] VITALS: BP 126/88
--- NOTE | 2023-06-07 21:00 | PTCARENOTE ---
@2030;Pt requested Tylenol pm for sleep.Pt appears anxious and MUNOZ.Pt received respiratory tx with some relief.Instructed MIRTA Handy on above note.Benadryl 25mg po ordered and administered.
[2023-06-07] MEDS: TYLENOL 650 MG PO (21:34)
[2023-06-07] MEDS: BENADRYL 25 MG PO (21:35)
[2023-06-07] MEDS: MELATONIN 5 MG PO (21:35)
[2023-06-07 23:44] VITALS: BP 129/86
[2023-06-08] MEDS: DECADRON 4 MG IV ×4 (00:36→23:54)
[2023-06-08 03:38] VITALS: BP 139/93
[2023-06-08 06:50] LABS: Hematocrit 41.6 % (39.0-52.0); Hemoglobin 14.9 g/dL (13.0-18.0); Mean Corp Hgb Conc. 35.8 g/dL (33.0-37.0); Mean Corpuscular Volume 89.5 fL (80.0-94.0); Mean Platelet Volume 9.3 fL (7.4-10.4); Platelet Count 298 10^3/uL (130-400); Red Blood Cell Count 4.65 10^6/uL (4.70-6.10); Red Cell Dist. Width 13.6 % (11.5-14.5); White Blood Cell Count 12.1 10^3/uL (4.8-10.8)
[2023-06-08 07:15] LABS: Blood Urea Nitrogen 14 mg/dl (9-20); Calcium 9.5 mg/dl (8.4-10.2); Carbon Dioxide 25 mmol/L (22-30); Chloride 97 mmol/L (98-107); Estimated Creatinine Clearance 107 ml/min; Glucose 127 mg/dl (70-99); Potassium 4.8 mmol/L (3.5-5.1); Sodium 130 mmol/L (135-145); eGFR > 60.00
[2023-06-08] MEDS: DUONEB 3 ML INH ×4 (07:18→19:26)
[2023-06-08] MEDS: PULMICORT 0.25 MG INH ×2 (07:18→19:26)
[2023-06-08 07:33] VITALS: BP 163/96
--- NOTE | 2023-06-08 08:59 | W.PN.HOSP.TC ---
Today's Communication/Plan
-
Will hold off on steroid taper for now
Continue doxycycline
Add amlodipine for BP management
Will need home O2 assessment
Assessment / Plan
Assessment / Plan
77 yr. old male w/ hx of� COPD presents to the ED� with� complaints of� shortness of breath.� Patient complains of worsening shortness of breath for the past week.� He has not been able to sleep.� He also complains of no appetite.� He denies any
actual fever or chills.� He has been using inhalers have not been improving his symptoms.� He does not normally wear oxygen.� He is a former smoker.� Quit some 2 years ago he actually states from my interview with he has been short of breath for
last 6 weeks and was actually seen by his PCP and prescribed a steroid course for he got better but shortness of breath and became worse the last couple of days.� He was tested last week for COVID and influenza finding it negative.� He follows with
Dr. Sue on the pulmonary service but seen infrequently and cannot remember the last time he saw her.� He has no cardiac issue history although he has been told he has a heart murmur.
COPD with acute exacerbation
-Chest x-ray clear
-Reformed smoker x 2 years
-Prior history of COPD and follows with pulmonary
-Only medication management is with [facility]
-Had course of steroid management and taper some 6 weeks ago with some improvement but returned
-Tested for COVID and influenza negative last week/vaccinated
-Borderline hypoxia presently off oxygen/now on 2 L/may need home oxygen screen prior to discharge
-Will treat with IV steroids, DuoNebs, budesonide
-Pulmonary consultation appreciated
Cardiac murmur
-No signs of CHF exacerbation
-BNP within normal limits
-No signs of fluid overload
-Obtain 2D echocardiogram/reviewed and no change from prior study of 2021
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
-Unclear etiology without prior history
-Fractional excretion of sodium is 0.33%
-Cautious course of IV fluids overnight as admits to poor appetite in the last week and could be low volume state
-Would give 1 more day of cautious IV fluids /now discontinued
Hypercholesterolemia
-Continue statin
Essential hypertension
-Persistently elevated while here
-New diagnosis
-Placed on amlodipine 5 mg
DVT prophylaxis with Lovenox
DNR/DNI per patient's request
Anticipated Discharge: 24 - 48 hours
Subjective/Interval History
-
Date of Service: June 08, 2023
After rapid response yesterday evening had a fairly restful night but on awakening this morning still has some accessory muscle usage evident. No active bronchospasm no signs of stridor
Objective Data
-
Labs:
Laboratory Results
06/08/23
06:27
WBC 12.1 H
Hgb 14.9
Hct 41.6
Plt Count 298
Sodium 130 L
Potassium 4.8
Chloride 97 L
Carbon Dioxide 25
BUN 14
Creatinine 0.6 L
Glucose 127 H
Calcium 9.5
Vital Signs:
Vital Signs
Temp Pulse Resp BP Pulse Ox
97 F 81 18 163/96 95
06/08/23 07:33 06/08/23 07:33 06/08/23 07:33 06/08/23 07:33 06/08/23 07:33
I&O
06/07/23 06/08/23 06/09/23
06:59 06:59 06:59
Intake Total 1440 / 1440 2280 / 2280
Output Total 2800 / 2800
Balance 1440 / 1440 -520 / -520
Review of Systems
-
History Source: Patient
Constitutional: Reports Fatigue
Respiratory: Reports Trouble Breathing
Cardiac: Reports No Symptoms
Abdomen/GI: Reports No Symptoms
Musculoskeletal: Reports No Symptoms
Skin: Reports No Symptoms
Physical Exam
-
General: Appears Chronically Ill
HEENT: Normocephalic
Respiratory: Clear to Auscultation and Decreased Breath Sounds
Cardiac: Regular Rhythm
GI: Soft, Nontender and Nondistended
Musculoskeletal: No Edema
Skin: Warm
Neuro: Awake
Psych: Anxious
Data Reviewed
-
Total Time Spent with Patient (in minutes): 45
Labs: Labs Reviewed by me
[2023-06-08] MEDS: MUCINEX 600 MG PO ×2 (09:11→20:32)
[2023-06-08] MEDS: OCUVITE SOFTGEL 1 CAP PO (09:15)
[2023-06-08] MEDS: NORVASC 5 MG PO (09:15)
--- NOTE | 2023-06-08 09:25 | CM ---
Per RN notes, patient is repeatedly sob. Will need to watch for any home o2 needs.
Plan: Case management will continue to follow and assist with discharge planning. Will watch for DME needs and potential home health care.
[2023-06-08] MEDS: VIBRAMYCIN 100 MG PO ×2 (09:40→20:33)
--- NOTE | 2023-06-08 11:34 | W.PN.PUL.V3 ---
Today's Communication / Plan
-
Tenuous respiratory status
Continue supplemental oxygen
No change in steroids
Continue nebulizers
Consider anxiolytics
Reviewed with nursing and primary team
Assessment
-
Assessment:
Mr Renard TRUJILLO is a 77/M adm 06-06 with 6 wks h/o dyspnea with worsening the past one wk. Seen by PCP, given a course of CS with initial improvement than then disappeared, tested negative COVID and flu last wk.
AECOPD-FEV1 830 mL - 42% with significant bronchodilator response
Hyponatremia
Normal troponin and BNP
RCA occlusion
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
COPD, very severe emphysema. On trelegy
HLD
Former smoker
Plan:
Respiratory status remains tenuous-rapid response called
Supplemental oxygen as needed
Assess discharge supplemental oxygen needs-suspect will require oxygen at time of discharge
BiPAP/noninvasive ventilation if needed
No change in steroids
Intensify nebulizers
Outpatient Trelegy
Mucolytic's/Acapella/incentive spirometry
Gentle anxiolytics-significant anxiety component, steroids likely also playing a role
Check cultures
Empiric antibiotics-doxycycline initiated-will finish 06/12/2023
Echocardiogram with normal biventricular function-summarized below
Reviewed with nursing and primary team
Outpatient pulmonary [id number] with Dr. Oglesby-PFTs, yearly low-dose lung cancer screening CT, pulmonary rehab, etc.
Diagnostic tests:
CXR 06-06-23, emphysematous lung baig, flat diaphragms, no infiltrates
H/N CTA 06-05-23
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
The bilateral common and internal carotid arteries are otherwise grossly patent with only mild scattered calcific plaque in the left carotid bulb.
Redemonstration of short segment approximately 50% stenosis of the proximal left subclavian artery
LDCT chest July 2022
IMPRESSION:
There are 2 tiny 1 mm nodules, unchanged in retrospect when compared to 2020. Therefore likely benign.
Severe emphysema.
TTE Dec 2021, normal biventricular function
Subjective Data
-
Date of Service:
Date of Service: June 08, 2023
Chief Complaint: Pulmonary Follow Up and Dyspnea Follow Up
Subjective:
Still pretty wheezy, short of breath, able to complete sentences, mild accessory muscle use, no chest pain, productive cough, or chest congestion
Review of Systems
General: Other (Per HPI)
Objective Data
Data Reviewed
Vital Signs / I&O:
Vital Signs
Temp Pulse Resp BP Pulse Ox
97 F 75 18 163/96 97
06/08/23 07:33 06/08/23 11:22 06/08/23 11:22 06/08/23 09:15 06/08/23 11:22
Intake and Output
06/07/23 06/08/23 06/09/23
06:59 06:59 06:59
Intake Total 1440 / 1440 2280 / 2280
Output Total 2800 / 2800
Balance 1440 / 1440 -520 / -520
SaO2: 97
Nasal Cannula flow liters per minute: 1
Physical Exam
General: Respiratory Distress and Comfortable
HEENT: Normocephalic, Moist Mucous Membranes, Thrush (n) and Other (no drooling)
Cardiovascular: Regular Rhythm, Murmur (n), JVD (n), Peripheral Edema (n) and Calf Tenderness
Respiratory: Clear (Diminished breath sounds), Wheeze (Forced expiratory), Crackles (n), Rhonchi, Accessory Resp Muscle Use (Mild) and Stridor (n)
GI: Soft, Non Distended and Non Tender
Neurology: Awake, AO x 3 and No Motor Deficits
Skin: Warm, Good Color, Cyanosis (n) and Jaundice
Labs/Micro/Reports
Lab Data
06/08/23 06:27
06/08/23 06:27
Laboratory Results
06/07/23 06/07/23
15:50 15:51
PT 12.4
INR 0.92
APTT 26.7
pH 7.42
pCO2 36
pO2 97
HCO3 23.4
O2 Delivery Level
[2023-06-08 14:54] VITALS: BP 141/90
[2023-06-08] MEDS: CRESTOR 40 MG PO (17:01)
[2023-06-08] MEDS: LOVENOX 40 MG SC (17:01)
[2023-06-08] MEDS: MELATONIN 5 MG PO (20:33)
[2023-06-08 23:00] VITALS: BP 116/82
[2023-06-09 07:30] VITALS: BP 129/84
[2023-06-09] MEDS: PULMICORT 0.25 MG INH ×2 (07:33→19:24)
[2023-06-09] MEDS: DUONEB 3 ML INH ×4 (07:33→19:24)
--- NOTE | 2023-06-09 08:44 | W.PN.HOSP.TC ---
Today's Communication/Plan
-
Would like to decrease Decadron to every 12
And hopefully try to transition to oral prednisone tomorrow
May need home oxygen screen increase activity and PT
Add anxiolytic in the form of buspirone
Assessment / Plan
Assessment / Plan
77 yr. old male w/ hx of� COPD presents to the ED� with� complaints of� shortness of breath.� Patient complains of worsening shortness of breath for the past week.� He has not been able to sleep.� He also complains of no appetite.� He denies any
actual fever or chills.� He has been using inhalers have not been improving his symptoms.� He does not normally wear oxygen.� He is a former smoker.� Quit some 2 years ago he actually states from my interview with he has been short of breath for
last 6 weeks and was actually seen by his PCP and prescribed a steroid course for he got better but shortness of breath and became worse the last couple of days.� He was tested last week for COVID and influenza finding it negative.� He follows with
Dr. Sue on the pulmonary service but seen infrequently and cannot remember the last time he saw her.� He has no cardiac issue history although he has been told he has a heart murmur.
COPD with acute exacerbation
-Chest x-ray clear
-Reformed smoker x 2 years
-Prior history of COPD and follows with pulmonary
-Only medication management is with Treleg[facility]
-Had course of steroid management and taper some 6 weeks ago with some improvement but returned
-Tested for COVID and influenza negative last week/vaccinated
-Borderline hypoxia presently off oxygen/now on 2 L/may need home oxygen screen prior to discharge
-Will treat with IV steroids, DuoNebs, budesonide
-Pulmonary consultation appreciated
Cardiac murmur
-No signs of CHF exacerbation
-BNP within normal limits
-No signs of fluid overload
-Obtain 2D echocardiogram/reviewed and no change from prior study of 2021
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
-Unclear etiology without prior history
-Fractional excretion of sodium is 0.33%
-Cautious course of IV fluids overnight as admits to poor appetite in the last week and could be low volume state
-Would give 1 more day of cautious IV fluids /now discontinued
Hypercholesterolemia
-Continue statin
Essential hypertension
-Persistently elevated while here
-New diagnosis
-Placed on amlodipine 5 mg
DVT prophylaxis with Lovenox
DNR/DNI per patient's request
Anticipated Discharge: Within 24 hours
Subjective/Interval History
-
Date of Service: June 09, 2023
Remains a with some dyspnea and anxiety. Elsie fairly restful night. No further events.
Objective Data
-
Vital Signs:
Vital Signs
Temp Pulse Resp BP Pulse Ox
97.8 F 72 16 129/84 97
06/09/23 07:30 06/09/23 07:37 06/09/23 07:37 06/09/23 07:30 06/09/23 07:37
I&O
06/08/23 06/09/23 06/10/23
06:59 06:59 06:59
Intake Total 2280 / 2280 2340 / 2340
Output Total 2800 / 2800 1625 / 1625
Balance -520 / -520 715 / 715
Review of Systems
-
History Source: Patient
Respiratory: Reports Cough and Trouble Breathing
Psych: Reports Anxious
Physical Exam
-
General: Appears Chronically Ill
HEENT: Normocephalic
Cardiac: Regular Rhythm
GI: Soft, Nontender and Nondistended
Skin: Warm
Neuro: Awake, Alert, Oriented, AO x 3 and No Motor Deficits
Psych: Anxious
Data Reviewed
-
Total Time Spent with Patient (in minutes): 56
Labs: Labs Reviewed by me
[2023-06-09] MEDS: DECADRON 4 MG IV ×2 (08:48→19:48)
[2023-06-09] MEDS: MUCINEX 600 MG PO ×2 (08:49→19:48)
[2023-06-09] MEDS: NORVASC 5 MG PO (08:49)
[2023-06-09] MEDS: VIBRAMYCIN 100 MG PO ×2 (09:17→19:48)
--- NOTE | 2023-06-09 14:15 | W.PN.PUL3 ---
Today's Communication / Plan
-
Continue steroids, no change
Encourage ambulation, assess oxygen requirement
Add GERD prophylaxis
Assessment
-
Mr Renard TRUJILLO is a 77/M adm 06-06 with 6 wks h/o dyspnea with worsening the past one wk. Seen by PCP, given a course of CS with initial improvement than then disappeared, tested negative COVID and flu last wk.
AECOPD-FEV1 830 mL - 42% with significant bronchodilator response
Hyponatremia
Normal troponin and BNP
RCA occlusion
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
COPD, very severe emphysema. On trelegy
HLD
Former smoker
Plan:
At this time, patient is showing some slow improvement
Less wheeze on exam, still decreased
96% on room air
Moving forward
Continue with nebulizer, incentive spirometry, airway clearance measures
Remains on doxycycline
Continue Decadron 4 mg every 12, no change for now
Outpatient Trelegy
Mucolytic's/Acapella/incentive spirometry
Gentle anxiolytics-significant anxiety component, steroids likely also playing a role
Cultures negative to date
Empiric antibiotics-doxycycline initiated-will finish 06/12/2023
Echocardiogram with normal biventricular function-summarized below
Encourage ambulation
Add GERD prophylaxis while on steroids
Outpatient pulmonary [id number] with Dr. Oglesby-PFTs, yearly low-dose lung cancer screening CT, pulmonary rehab, etc.
Diagnostic tests:
CXR 06-06-23, emphysematous lung baig, flat diaphragms, no infiltrates
H/N CTA 06-05-23
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
The bilateral common and internal carotid arteries are otherwise grossly patent with only mild scattered calcific plaque in the left carotid bulb.
Redemonstration of short segment approximately 50% stenosis of the proximal left subclavian artery
LDCT chest July 2022
IMPRESSION:
There are 2 tiny 1 mm nodules, unchanged in retrospect when compared to 2020. Therefore likely benign.
Severe emphysema.
TTE Dec 2021, normal biventricular function
Subjective Data
-
Date of Service:
Date of Service: June 09, 2023
Chief Complaint: Pulmonary Follow Up and Dyspnea Follow Up
Subjective:
Patient seen and examined earlier this morning. Patient feels somewhat better. Still has cough, shortness of breath. Denies hemoptysis, nausea, abdominal pain
Objective Data
Data Reviewed
Vital Signs / I&O / Oxygen:
Vital Signs
Temp Pulse Resp BP Pulse Ox
97.8 F 76 16 129/84 96
06/09/23 07:30 06/09/23 11:28 06/09/23 11:28 06/09/23 07:30 06/09/23 11:28
Intake and Output
06/08/23 06/09/23 06/10/23
06:59 06:59 06:59
Intake Total 2280 / 2280 2340 / 2340
Output Total 2800 / 2800 1625 / 1625
Balance -520 / -520 715 / 715
SaO2 96
Nasal Cannula flow liters per 1
minute
Physical Exam
General: Respiratory Distress
HEENT: Normocephalic and Moist Mucous Membranes
Cardiovascular: Regular Rhythm, Murmur (n), Peripheral Edema (n) and Calf Tenderness
Respiratory: Clear (Diminished breath sounds), Wheeze (few), Crackles (n), Rhonchi (few), Non-Labored Respirations and Stridor (n)
GI: Soft, Non Distended and Non Tender
Neurology: Awake, Alert and No Motor Deficits
Skin: Good Color, Cyanosis (n) and Jaundice
Labs/Micro/Reports
Lab Data
06/08/23 06:27
06/08/23 06:27
[2023-06-09 14:51] VITALS: O2SAT 90; O2SAT 94
[2023-06-09 16:00] VITALS: BP 122/79
[2023-06-09] MEDS: LOVENOX 40 MG SC (17:42)
[2023-06-09] MEDS: BUSPAR 10 MG PO (19:48)
[2023-06-09] MEDS: MELATONIN 5 MG PO (19:48)
[2023-06-09 23:15] VITALS: BP 138/87
[2023-06-10 07:00] VITALS: BP 151/87
[2023-06-10] MEDS: DUONEB 3 ML INH ×4 (07:21→19:23)
[2023-06-10] MEDS: PULMICORT 0.25 MG INH ×2 (07:21→19:23)
[2023-06-10 07:36] LABS: Blood Urea Nitrogen 18 mg/dl (9-20); Calcium 9.4 mg/dl (8.4-10.2); Carbon Dioxide 27 mmol/L (22-30); Chloride 91 mmol/L (98-107); Estimated Creatinine Clearance 107 ml/min; Glucose 110 mg/dl (70-99); Potassium 4.6 mmol/L (3.5-5.1); Sodium 127 mmol/L (135-145); eGFR > 60.00
--- NOTE | 2023-06-10 08:52 | W.PN.HOSP.TC ---
Today's Communication/Plan
-
To be transition to oral prednisone today
Will give another cautious course of IV fluids are you responded to before for his hyponatremia but placed on fluid restriction
Continue doxycycline
Assessment / Plan
Assessment / Plan
77 yr. old male w/ hx of� COPD presents to the ED� with� complaints of� shortness of breath.� Patient complains of worsening shortness of breath for the past week.� He has not been able to sleep.� He also complains of no appetite.� He denies any
actual fever or chills.� He has been using inhalers have not been improving his symptoms.� He does not normally wear oxygen.� He is a former smoker.� Quit some 2 years ago he actually states from my interview with he has been short of breath for
last 6 weeks and was actually seen by his PCP and prescribed a steroid course for he got better but shortness of breath and became worse the last couple of days.� He was tested last week for COVID and influenza finding it negative.� He follows with
Dr. Sue on the pulmonary service but seen infrequently and cannot remember the last time he saw her.� He has no cardiac issue history although he has been told he has a heart murmur.
COPD with acute exacerbation
-Chest x-ray clear
-Reformed smoker x 2 years
-Prior history of COPD and follows with pulmonary
-Only medication management is with [facility]
-Had course of steroid management and taper some 6 weeks ago with some improvement but returned
-Tested for COVID and influenza negative last week/vaccinated
-Borderline hypoxia presently off oxygen/now on 2 L/may need home oxygen screen prior to discharge
-Will treat with IV steroids, DuoNebs, budesonide
-Pulmonary consultation appreciated
Cardiac murmur
-No signs of CHF exacerbation
-BNP within normal limits
-No signs of fluid overload
-Obtain 2D echocardiogram/reviewed and no change from prior study of 2021
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
-Unclear etiology without prior history
-Fractional excretion of sodium is 0.33%
-Placed on fluid restriction
-Again trial of IV fluids has responded prior
Hypercholesterolemia
-Continue statin
Essential hypertension
-Persistently elevated while here
-New diagnosis
-Placed on amlodipine 5 mg
DVT prophylaxis with Lovenox
DNR/DNI per patient's request
Anticipated Discharge: 24 - 48 hours
Subjective/Interval History
-
Date of Service: June 10, 2023
no distress this morning
Objective Data
-
Labs:
Laboratory Results
06/10/23
05:56
Sodium 127 L
Potassium 4.6
Chloride 91 L
Carbon Dioxide 27
BUN 18
Creatinine 0.6 L
Glucose 110 H
Calcium 9.4
Vital Signs:
Vital Signs
Temp Pulse Resp BP Pulse Ox
97.7 F 77 20 151/87 94
06/10/23 07:00 06/10/23 07:28 06/10/23 07:28 06/10/23 07:00 06/10/23 07:28
I&O
06/09/23 06/10/23 06/11/23
06:59 06:59 06:59
Intake Total 2340 / 2340 1200 / 1200
Output Total 1625 / 1625 975 / 975
Balance 715 / 715 225 / 225
Review of Systems
-
History Source: Patient
All other systems: Not reviewed unless documented
Cardiac: Reports No Symptoms
Genitourinary: Reports No Symptoms
Physical Exam
-
General: No Apparent Distress and Appears Chronically Ill
HEENT: Normocephalic
Respiratory: Rhonchi and Decreased Breath Sounds
Cardiac: Regular Rhythm
Psych: Anxious
Data Reviewed
-
Total Time Spent with Patient (in minutes): 56
Labs: Labs Reviewed by me (Sodium down to 127 from 130 chloride 91)
[2023-06-10] MEDS: DECADRON 4 MG IV (08:57)
[2023-06-10] MEDS: NORVASC 5 MG PO (08:58)
[2023-06-10] MEDS: MUCINEX 600 MG PO ×2 (08:58→19:46)
[2023-06-10] MEDS: PEPCID 20 MG PO (08:58)
[2023-06-10] MEDS: BUSPAR 10 MG PO ×2 (08:58→19:46)
[2023-06-10] MEDS: VIBRAMYCIN 100 MG PO ×2 (09:00→22:11)
[2023-06-10] MEDS: NSS 1000 IV ×2 (09:48→19:52)
[2023-06-10 10:18] LABS: Osmolality Urine 366 mOsm/kg (300-900)
[2023-06-10 10:47] LABS: Urine Sodium 49 mmol/L (30-90)
--- NOTE | 2023-06-10 13:09 | W.PN.PUL3 ---
Today's Communication / Plan
-
Transition to oral prednisone
Ambulatory saturation 06/11
Continue antibiotic
Will require short term follow-up with pulmonary
Assessment
-
Mr Renard TRUJILLO is a 77/M adm 06-06 with 6 wks h/o dyspnea with worsening the past one wk. Seen by PCP, given a course of CS with initial improvement than then disappeared, tested negative COVID and flu last wk.
AECOPD-FEV1 830 mL - 42% with significant bronchodilator response
Hyponatremia
Normal troponin and BNP
RCA occlusion
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
COPD, very severe emphysema. On trelegy
HLD
Former smoker
Plan:
At this time, patient is showing some slow improvement
Less rhonchi and wheeze on exam
93% on room air
Moving forward
Continue with nebulizer, incentive spirometry, airway clearance measures
Remains on doxycycline
Will transition to oral prednisone this p.m., 20 mg twice a day
Assess for oxygen requirement in a.m.
Outpatient Trelegy
Mucolytic's/Acapella/incentive spirometry
Gentle anxiolytics-significant anxiety component, steroids likely also playing a role
Cultures negative to date
Empiric antibiotics-doxycycline initiated-will finish 06/12/2023
Echocardiogram with normal biventricular function-summarized below
Encourage ambulation, check oxygen requirement
Given nocturnal symptoms, may need to consider outpatient sleep evaluation
GERD Therapy
Outpatient pulmonary [id number]-[id number] with Dr. Oglesby-PFTs, yearly low-dose lung cancer screening CT, pulmonary rehab, etc.
Diagnostic tests:
CXR 06-06-23, emphysematous lung baig, flat diaphragms, no infiltrates
H/N CTA 06-05-23
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
The bilateral common and internal carotid arteries are otherwise grossly patent with only mild scattered calcific plaque in the left carotid bulb.
Redemonstration of short segment approximately 50% stenosis of the proximal left subclavian artery
LDCT chest July 2022
IMPRESSION:
There are 2 tiny 1 mm nodules, unchanged in retrospect when compared to 2020. Therefore likely benign.
Severe emphysema.
TTE Sept 2021, normal biventricular function
Subjective Data
-
Date of Service:
Date of Service: June 10, 2023
Chief Complaint: Pulmonary Follow Up and Dyspnea Follow Up
Subjective:
Patient feels slightly improved this morning, was more short of breath through the night. Lies flat at night. Denies productive cough, denies chest pain, nausea, abdominal pain. On room air
Objective Data
Data Reviewed
Vital Signs / I&O / Oxygen:
Vital Signs
Temp Pulse Resp BP Pulse Ox
97.7 F 88 21 151/87 93
06/10/23 07:00 06/10/23 11:26 06/10/23 11:26 06/10/23 07:00 06/10/23 11:26
Intake and Output
06/09/23 06/10/23 06/11/23
06:59 06:59 06:59
Intake Total 2340 / 2340 1200 / 1200
Output Total 1625 / 1625 975 / 975
Balance 715 / 715 225 / 225
SaO2 93
Nasal Cannula flow liters per 1
minute
Physical Exam
General: Comfortable
HEENT: Normocephalic and Moist Mucous Membranes
Cardiovascular: Regular Rhythm, Murmur (n), Peripheral Edema (n) and Calf Tenderness
Respiratory: Clear (Diminished breath sounds), Wheeze (few), Crackles (n), Rhonchi (n), Non-Labored Respirations and Stridor (n)
GI: Soft, Non Distended and Non Tender
Neurology: Awake, Alert and No Motor Deficits
Skin: Good Color, Cyanosis (n) and Jaundice
Labs/Micro/Reports
Lab Data
06/08/23 06:27
06/10/23 05:56
[2023-06-10 15:00] VITALS: BP 162/86
[2023-06-10] MEDS: CRESTOR 40 MG PO (17:18)
[2023-06-10] MEDS: LOVENOX 40 MG SC (17:18)
[2023-06-10] MEDS: ATIVAN 0.5 MG IV (19:42)
[2023-06-10] MEDS: NSS (PRESERVATIVE FREE) 0.25 ML IV (19:46)
[2023-06-10] MEDS: DELTASONE 20 MG PO (19:51)
--- NOTE | 2023-06-10 20:00 | PTCARENOTE ---
Patient c/o severe anxiety. Calling out of room stating he is SOB. This RN in to assess patient, patient placed on 2L O2. Nothing ordered for anxiety at this time. MIRTA Herman notified. STAT order for Ativan 0.5mg IV received. Care ongoing.
[2023-06-10] MEDS: MELATONIN 5 MG PO (22:07)
[2023-06-10 23:30] VITALS: BP 149/94
--- NOTE | 2023-06-11 04:46 | PTCARENOTE ---
Patient increasingly more confused throughout night. Vital stable, Patient pulled out IV, continually getting OOB. Patient able to some questions appropriately but becoming increasing more anxious. Pulse ox 93% on RA. Patient reports feeling that
nebulizers make hime more anxious. Patient continues with significant MUNOZ. Bed alarm placed on bed. MIRTA Ceja notified of patient's increasing confusion and anxiety. No new orders received at this time. Care ongoing.
[2023-06-11] MEDS: NSS (PRESERVATIVE FREE) 0.25 ML IV (05:15)
[2023-06-11] MEDS: ATIVAN 0.5 MG IV (05:17)
--- NOTE | 2023-06-11 06:14 | PTCARENOTE ---
Patient screaming out that he is 'going home to get rest'. Patient very MUNOZ, patient becoming combative. Patient dressing himself and stating he is leaving. MIRTA Herman notified of patient's continued worsening mentation. Patient received Ativan
0.5mg IV with no effect. Order received to place B/L soft limb restraints on patient. Care ongoing.
[2023-06-11 06:42] LABS: Blood Urea Nitrogen 17 mg/dl (9-20); Calcium 9.3 mg/dl (8.4-10.2); Carbon Dioxide 24 mmol/L (22-30); Chloride 93 mmol/L (98-107); Estimated Creatinine Clearance 107 ml/min; Glucose 146 mg/dl (70-99); Potassium 4.3 mmol/L (3.5-5.1); Sodium 124 mmol/L (135-145); eGFR > 60.00
--- NOTE | 2023-06-11 06:49 | W.PN.UPDATE ---
Update Note
Progress Note Update
Na level dropped down to 124 this am previously was 127 and patient was placed on fluid restrictions with no improvement. Nephrology consult was placed.
[2023-06-11 07:00] VITALS: BP 192/119
[2023-06-11] MEDS: DUONEB 3 ML INH ×4 (07:36→19:22)
[2023-06-11] MEDS: PULMICORT 0.25 MG INH ×2 (07:36→19:22)
[2023-06-11] MEDS: MUCINEX 600 MG PO ×2 (07:54→20:21)
[2023-06-11] MEDS: PEPCID 20 MG PO (07:54)
[2023-06-11] MEDS: NORVASC 5 MG PO (07:55)
[2023-06-11] MEDS: DELTASONE 40 MG PO (07:55)
[2023-06-11] MEDS: BUSPAR 10 MG PO ×2 (07:55→20:17)
[2023-06-11] MEDS: OCUVITE SOFTGEL 1 CAP PO (08:04)
[2023-06-11] MEDS: VIBRAMYCIN 100 MG PO ×2 (09:34→21:47)
[2023-06-11] MEDS: NSS IV (12:13)
[2023-06-11] MEDS: SAMSCA 15 MG PO (13:13)
--- NOTE | 2023-06-11 13:21 | W.PN.PUL3 ---
Today's Communication / Plan
-
Cont. PO prednisone, hopefully rapid taper
Cont. Nebs
Hold inhaler for now
Doxycicline until 06/12/2023
Hyponatremia management per primary team.
Assessment
-
Mr Renard TRUJILLO is a 77/M adm 06-06 with 6 wks h/o dyspnea with worsening the past one wk. Seen by PCP, given a course of CS with initial improvement than then disappeared, tested negative COVID and flu last wk.
AECOPD-FEV1 830 mL - 42% with significant bronchodilator response
.
Toxic metabolic encephalopathy
Hyponatremia
Normal troponin and BNP
RCA occlusion
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
COPD, very severe emphysema. On trelegy
HLD
Former smoker
Plan:
Not back to baseline-appears dyspneic with activity.
Remains off supplemental oxygen
Bilateral breath sounds are decreased-not wheezing
Has developed toxic metabolic encephalopathy-May be multifactorial from hyponatremia as well as steroids.
Cont with bronchodilators:
Continue DuoNebs
Continue budesonide
Hold nebulized inhalers for now
Continue incentive spirometry
Continue prednisone. will continue to rapidly taper. Currently at 40mg Po daily since 06/10/2023.
-
Mucolytic's/Acapella/incentive spirometry
-
Gentle anxiolytics-significant anxiety component, steroids likely also playing a role
No confused, restless.
Wean steroids as above.
Cultures negative to date
Empiric antibiotics-doxycycline initiated-will finish 06/12/2023
Echocardiogram with normal biventricular function-summarized below
Encourage ambulation, check oxygen requirement prior DC.
Given nocturnal symptoms, may need to consider outpatient sleep evaluat.ion
GERD Therapy
Hyponatremia management per primary team.
Outpatient pulmonary [id number] with Dr. Oglesby-PFTs, yearly low-dose lung cancer screening CT, pulmonary rehab, etc.

Diagnostic tests:
CXR 06-06-23, emphysematous lung baig, flat diaphragms, no infiltrates
H/N CTA 06-05-23
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
The bilateral common and internal carotid arteries are otherwise grossly patent with only mild scattered calcific plaque in the left carotid bulb.
Redemonstration of short segment approximately 50% stenosis of the proximal left subclavian artery
LDCT chest July 2022
IMPRESSION:
There are 2 tiny 1 mm nodules, unchanged in retrospect when compared to 2020. Therefore likely benign.
Severe emphysema.
TTE Sept 2021, normal biventricular function
Subjective Data
-
Date of Service:
Date of Service: June 11, 2023
Chief Complaint: Pulmonary Follow Up and Dyspnea Follow Up
Objective Data
Data Reviewed
Vital Signs / I&O / Oxygen:
Vital Signs
Temp Pulse Resp BP Pulse Ox
98.8 F 96 24 192/119 98
06/11/23 07:00 06/11/23 11:30 06/11/23 11:30 06/11/23 07:55 06/11/23 11:30
Intake and Output
06/10/23 06/11/23 06/12/23
06:59 06:59 06:59
Intake Total 1200 / 1200 1290 / 1290
Output Total 975 / 975
Balance 225 / 225 1290 / 1290
SaO2 98
Nasal Cannula flow liters per 3
minute
Physical Exam
General: Comfortable
HEENT: Normocephalic and Moist Mucous Membranes
Cardiovascular: Regular Rhythm, Murmur (n), Peripheral Edema (n) and Calf Tenderness
Respiratory: Clear (Diminished breath sounds), Wheeze (few), Crackles (n), Rhonchi (n), Non-Labored Respirations and Stridor (n)
GI: Soft, Non Distended and Non Tender
Neurology: Awake, Alert and No Motor Deficits
Skin: Good Color, Cyanosis (n) and Jaundice
Labs/Micro/Reports
Lab Data
06/08/23 06:27
06/11/23 06:05
--- NOTE | 2023-06-11 14:07 | W.CON.NEPH ---
Consultation
-
Date/Time Consultation Requested: June 11, 2023 9 AM
Date/Time Consultation Performed: June 11, 2023 12 noon
Requesting Provider: Dr. Morales
Performing Provider: Dr. Michaud
Reason for Consultation: Hyponatremia
Medical History
-
Chief Complaint: Hyponatremia
History of Present Illness:
77 yr. old male with COPD presents to the ED with complaints of�shortness of breath.� Patient complains of worsening shortness of breath for the past week.� He has not been able to sleep.� He also complains of no appetite.� He denies any actual
fever or chills.� He has been using inhalers that have not been improving his symptoms.� He does not normally wear oxygen.� He is a former smoker.�He was tested last week for COVID and influenza finding it negative.� He follows with Dr. Sue but is
infrequently and cannot remember the last time he saw her.� He has no cardiac issue history although he has been told he has a heart murmur. He received saline during his admission with mild improvement of hyponatremia from 128 up to 131, but last
night it dropped to 124 and we are asked to assist with management of the hyponatremia.
Past Medical History
COPD, hyperlipidemia
Social History
Tobacco: Former Smoker
Alcohol: None
Family History
No CKD
Allergies / Home Medications
Allergy/AdvReac Type Severity Reaction Status Date / Time
naproxen Allergy Rash/ankle Verified 06/06/23 07:35
swelling
Medication Instructions Recorded Confirmed Type
fluticasone fur. 200 mcg-umeclid 1 inh IH R DAILY SOB 03/28/21 06/06/23 History
62.5 mcg-vilant 25 mcg
inhalat.powder (Trelegy Ellipta)
multivitamin with folic acid 400 1 tab PO DAILY Supplement 03/28/21 06/06/23 History
mcg tablet (Tab-A-Fifi)
vit C 250 mg-vit E 90 mg-zinc 40 1 ea PO MOWEFR Supplement 03/28/21 06/06/23 History
mg-copper 1 ew-bopdcf-khovvr
capsule (PreserVision AREDS-2)
rosuvastatin 40 mg tablet (Crestor) 40 mg PO Q48H High Cholesterol 06/06/23 06/06/23 History
sildenafil 50 mg tablet 50 mg PO DAILY PRN ed 06/06/23 06/06/23 History
Review of Systems
-
No chest pain minimal shortness of breath. No edema. The remainder of the complete review of systems was negative.
Physical Exam
Vital Signs
Vital Signs
Temp Pulse Resp BP Pulse Ox
98.8 F 96 24 192/119 98
06/11/23 07:00 06/11/23 11:30 06/11/23 11:30 06/11/23 07:55 06/11/23 11:30
Lab Results
WBC 12.1 10^3/uL (4.8-10.8) H 06/08/23 06:27
RBC 4.65 10^6/uL (4.70-6.10) L 06/08/23 06:27
Hgb 14.9 g/dL (13.0-18.0) 06/08/23 06:27
Hct 41.6 % (39.0-52.0) 06/08/23 06:27
Plt Count 298 10^3/uL (130-400) 06/08/23 06:27
Sodium 124 mmol/L (135-145) L 06/11/23 06:05
Potassium 4.3 mmol/L (3.5-5.1) 06/11/23 06:05
Chloride 93 mmol/L (98-107) L 06/11/23 06:05
Carbon Dioxide 24 mmol/L (22-30) 06/11/23 06:05
BUN 17 mg/dl (9-20) 06/11/23 06:05
Creatinine 0.6 mg/dL (0.7-1.3) L 06/11/23 06:05
eGFR > 60.00 06/11/23 06:05
Glucose 146 mg/dl (70-99) H 06/11/23 06:05
Calcium 9.3 mg/dl (8.4-10.2) 06/11/23 06:05
Omd-Q-Ulmfpntdbgi Pept 27.7 pg/ml 06/06/23 08:16
Albumin 4.0 g/dl (3.5-5.0) 06/06/23 08:16
Physical Exam
General: AOx3 and No Distress
HEENT: PERRL, EOMI, Hearing Normal, Oropharynx Clear/Moist and Trachea Midline
Respiratory: Clear
Cardiac: Regular Rate/Rhythm and No Edema
Abdomen: Soft, Nontender, Nondistended, Normal Bowel Sounds and No Hepatosplenomegaly
Skin: No Rash and Normal Turgor
Psych: Mood/afflect pleasant and Insight/judgement good
Assessment/Plan
-
Assessment
COPD with acute exacerbation
Hyponatremia
Hypercholesterolemia
hypertension
Plan
-FR 48oz
-samsca today
-follow BMP
-hyponatremia likely from COPD exacerbation
Data Reviewed
-
Radiology: Image Personally Visualized and interpreted (Chest x-ray on 06/07/2023 by reading shows changes of COPD hyperinflation)
Medical Tests (Nuc Med, Echo etc): Image Personally Visualized and interpreted (EKG on 06/06/2021 for by my reading shows normal sinus rhythm nonspecific T wave abnormalities) and Report Reviewed by me (Echocardiogram on 06/06/2023 shows mild
concentric LVH)
Labs: Labs Reviewed by me
--- NOTE | 2023-06-11 14:08 | W.PN.HOSP.TC ---
Addendum entered and electronically signed by Babak Jones MD 06/11/23 14:19:
please DO NOT give benzodiazepines for agitation. Use Haldol or olanzapine if needed
Original Note:
Today's Communication/Plan
-
UA
Hopeful for rapid steroid taper
Early ambulation if safe to decrease risk of delirium
FWR
Nephro consulted for hyponatremia - anticipate Samsca today
Assessment / Plan
Assessment / Plan
77 yr. old male w/ hx of� COPD presents to the ED� with� complaints of� shortness of breath.� Patient complains of worsening shortness of breath for the past week.� He has not been able to sleep.� He also complains of no appetite.� He denies any
actual fever or chills.� He has been using inhalers have not been improving his symptoms.� He does not normally wear oxygen.� He is a former smoker.� Quit some 2 years ago he actually states from my interview with he has been short of breath for
last 6 weeks and was actually seen by his PCP and prescribed a steroid course for he got better but shortness of breath and became worse the last couple of days.� He was tested last week for COVID and influenza finding it negative.� He follows with
Dr. Sue on the pulmonary service but seen infrequently and cannot remember the last time he saw her.� He has no cardiac issue history although he has been told he has a heart murmur.
COPD with acute exacerbation
-Chest x-ray clear, no wheezing, although breath sounds diminished
-Reformed smoker x 2 years
-Dyspneic with activity
� Due to encephalopathy, anticipate and hope rapid taper of prednisone
� Continue doxycycline until tomorrow 06/12
-Only medication management is with [facility]
-Had course of steroid management and taper some 6 weeks ago with some improvement but returned
-Maintain O2>88%; weaned off o2 - mid 90s on RA although still dyspneic
-Will treat with IV steroids, DuoNebs, budesonide
-Pulmonary consultation appreciated
#Acute metabolic encephalopathy
� Possibly secondary to hyponatremia although could also be steroid-induced psychosis
� Open anticipate rapid prednisone taper
� Treat hyponatremia
-F/u UA
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
-Unclear etiology without prior history
-Fractional excretion of sodium is 0.33%
-Free Water restriction
-anticipate Samsca
Cardiac murmur
-No signs of CHF exacerbation
-BNP within normal limits
-No signs of fluid overload
-Obtain 2D echocardiogram/reviewed and no change from prior study of 2021
Hypercholesterolemia
-Continue statin
Essential hypertension
-Persistently elevated while here
-New diagnosis
-Placed on amlodipine 5 mg - titrate up today to 10mg
DVT prophylaxis with Lovenox
DNR/DNI per patient's request
Total time spent on today's encounter was 51 minutes which included time spent in counseling the patient/family regarding diagnosis and treatment plan as listed above, goals of care, and symptom management. Case was discussed with nursing staff,
specialists, and care coordinators/case management. All labs and imaging personally reviewed by me. Remainder the time spent in detailed review of previous records, lab data, imaging, and other medical provider documentation.
Anticipated Discharge: > 48 hours
Subjective/Interval History
-
Date of Service: June 11, 2023
Patient very agitated, altered�encephalopathic
Objective Data
-
Labs:
Laboratory Results
06/11/23
06:05
Sodium 124 L
Potassium 4.3
Chloride 93 L
Carbon Dioxide 24
BUN 17
Creatinine 0.6 L
Glucose 146 H
Calcium 9.3
Vital Signs:
Vital Signs
Temp Pulse Resp BP Pulse Ox
98.8 F 96 24 192/119 98
06/11/23 07:00 06/11/23 11:30 06/11/23 11:30 06/11/23 07:55 06/11/23 11:30
I&O
06/10/23 06/11/23 06/12/23
06:59 06:59 06:59
Intake Total 1200 / 1200 1290 / 1290
Output Total 975 / 975
Balance 225 / 225 1290 / 1290
Review of Systems
-
Unable to obtain full review of systems at this time due to: Acuity
History Source: Patient
All other systems: Not reviewed unless documented
Data Reviewed
-
Total Time Spent with Patient (in minutes): 56
Diagnostic Radiology: Image personally visualized and interpreted and Report Reviewed by me
Labs: Labs Reviewed by me (Sodium down to 127 from 130 chloride 91)
[2023-06-11 15:00] VITALS: BP 147/90
[2023-06-11] MEDS: HALDOL 2.5 MG IM (16:18)
[2023-06-11 16:52] LABS: Urine Albumin Negative (Neg - Trace); Urine Bilirubin Negative (Negative); Urine Character Clear (Clear); Urine Color Yellow; Urine Glucose Negative (Negative); Urine Ketone Trace (Negative); Urine Leukocyte Negative (Negative); Urine Nitrite Negative (Negative); Urine Occult Blood Negative (Negative); Urine Urobilinogen Negative (Neg - 1+)
[2023-06-11] MEDS: LOVENOX 40 MG SC (17:51)
--- NOTE | 2023-06-11 18:36 | PTCARENOTE ---
Pt. presented this morning with a change in mental status. Pt. was completely oriented and self in the room yesterday, but overnight had episodes of confusion. As the morning shift when on pt. continuously made attempts out but was re redirected to
get back in bed. At around 1630 pt. was becoming more agitated and walked out in the [place]. made aware and IM haldol was given. Pt. moved rooms from 316-1 to 320 and was still agitated. ordered restraints. This nurse sat with pt to calm down
and pt. was finally able to fall asleep, no restraints in afternoon needed. Will continue to monitor pt. Med sitter and bed alarm in place.
[2023-06-11] MEDS: MELATONIN 5 MG PO (21:45)
[2023-06-11 23:30] VITALS: BP 149/56
[2023-06-12] MEDS: DUONEB 3 ML INH ×5 (03:10→19:11)
[2023-06-12 06:41] LABS: Hematocrit 41.9 % (39.0-52.0); Hemoglobin 14.8 g/dL (13.0-18.0); Mean Corp Hgb Conc. 35.3 g/dL (33.0-37.0); Mean Corpuscular Hgb 31.6 pg (27.0-31.0); Mean Corpuscular Volume 89.5 fL (80.0-94.0); Platelet Count 371 10^3/uL (130-400); Red Blood Cell Count 4.68 10^6/uL (4.70-6.10); Red Cell Dist. Width 13.2 % (11.5-14.5); White Blood Cell Count 18.9 10^3/uL (4.8-10.8)
[2023-06-12 07:10] LABS: Blood Urea Nitrogen 20 mg/dl (9-20); Calcium 9.4 mg/dl (8.4-10.2); Carbon Dioxide 28 mmol/L (22-30); Chloride 90 mmol/L (98-107); Estimated Creatinine Clearance 107 ml/min; Glucose 81 mg/dl (70-99); Sodium 127 mmol/L (135-145); eGFR > 60.00
[2023-06-12] MEDS: PULMICORT 0.25 MG INH ×2 (07:24→19:11)
[2023-06-12 07:27] VITALS: BP 157/107
[2023-06-12] MEDS: PEPCID 20 MG PO (07:45)
[2023-06-12] MEDS: DELTASONE 30 MG PO (07:45)
[2023-06-12] MEDS: BUSPAR 10 MG PO ×2 (07:45→20:19)
[2023-06-12] MEDS: MUCINEX 600 MG PO ×2 (07:45→20:19)
[2023-06-12] MEDS: NORVASC 10 MG PO (07:46)
[2023-06-12] MEDS: VIBRAMYCIN 100 MG PO ×2 (10:44→22:10)
--- NOTE | 2023-06-12 11:33 | W.PN.NEPH.PH ---
Today's Communication / Plan
-
samsca
Assessment/Plan
-
Assessment
COPD with acute exacerbation
Hyponatremia
Hypercholesterolemia
hypertension
Plan
-FR 48oz
-samsca today again
-follow BMP
-hyponatremia likely from COPD exacerbation
-
-
Date of Service: June 12, 2023
CC / HPI / ROS
-
Chief Complaint:
hyponatremia
History of Present Illness:
Na up to 127 with samsca
BUN rising, on prednisone
BP stable
Review of Systems:
no CP
SOB
Labs
-
Labs:
WBC 18.9 10^3/uL (4.8-10.8) H 06/12/23 06:10
RBC 4.68 10^6/uL (4.70-6.10) L 06/12/23 06:10
Hgb 14.8 g/dL (13.0-18.0) 06/12/23 06:10
Hct 41.9 % (39.0-52.0) 06/12/23 06:10
Plt Count 371 10^3/uL (130-400) D 06/12/23 06:10
Sodium 127 mmol/L (135-145) L 06/12/23 06:10
Potassium 4.0 mmol/L (3.5-5.1) 06/12/23 06:10
Chloride 90 mmol/L (98-107) L 06/12/23 06:10
Carbon Dioxide 28 mmol/L (22-30) 06/12/23 06:10
BUN 20 mg/dl (9-20) 06/12/23 06:10
Creatinine 0.6 mg/dL (0.7-1.3) L 06/12/23 06:10
eGFR > 60.00 06/12/23 06:10
Glucose 81 mg/dl (70-99) 06/12/23 06:10
Calcium 9.4 mg/dl (8.4-10.2) 06/12/23 06:10
Hxq-Z-Bnpvmxncwzr Pept 27.7 pg/ml 06/06/23 08:16
Albumin 4.0 g/dl (3.5-5.0) 06/06/23 08:16
Physical Exam
-
Vital Signs:
Vital Signs
Temp Pulse Resp BP Pulse Ox
97.3 F 94 24 157/107 94
06/12/23 07:27 06/12/23 11:26 06/12/23 11:26 06/12/23 07:46 06/12/23 11:26
Cardiovascular:: Regular rate and rhythm
Respiratory:: Bilateral: Wheeze
Lung Excursion:: Normal
Abdomen:: Nontender and Soft
Bowel Sounds:: Normal
Extremity Edema:: None: Bilateral:
[2023-06-12] MEDS: SAMSCA 15 MG PO (13:01)
--- NOTE | 2023-06-12 13:41 | W.PN.HOSP.TC ---
Today's Communication/Plan
-
complete abx course
duonebs - patient prefers duoneb kit at home
cont steroid taper
samsca
Assessment / Plan
Assessment / Plan
77 yr. old male w/ hx of� COPD presents to the ED� with� complaints of� shortness of breath.� Patient complains of worsening shortness of breath for the past week.� He has not been able to sleep.� He also complains of no appetite.� He denies any
actual fever or chills.� He has been using inhalers have not been improving his symptoms.� He does not normally wear oxygen.� He is a former smoker.� Quit some 2 years ago he actually states from my interview with he has been short of breath for
last 6 weeks and was actually seen by his PCP and prescribed a steroid course for he got better but shortness of breath and became worse the last couple of days.� He was tested last week for COVID and influenza finding it negative.� He follows with
Dr. Sue on the pulmonary service but seen infrequently and cannot remember the last time he saw her.� He has no cardiac issue history although he has been told he has a heart murmur.
COPD with acute exacerbation
-Chest x-ray clear, no wheezing, although breath sounds diminished
-Reformed smoker x 2 years
-Dyspneic with activity
� Due to encephalopathy, anticipate and hope rapid taper of prednisone
� Continue doxycycline until today 06/12
-Only medication management is with Trelegy
-Had course of steroid management and taper some 6 weeks ago with some improvement but returned
-Maintain O2>88%; weaned off o2 - mid on RA although still dyspneic
-Will treat with IV steroids, DuoNebs, budesonide
-Pulmonary consultation appreciated
-consulted CM for duonebs at home; Was not able to take Trelegy due to cost [place] ($100 monthly)
#Acute metabolic encephalopathy
-improving
� Possibly secondary to hyponatremia although could also be steroid-induced psychosis; was given ativasn night prior to AMS - i suspect this did not help the matter
� Open anticipate rapid prednisone taper
� Treat hyponatremia
-UA negative
-Avoid benzodiazepines
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
-Unclear etiology without prior history
-Fractional excretion of sodium is 0.33%
-Free Water restriction
-Samsca again today
Cardiac murmur
-No signs of CHF exacerbation
-BNP within normal limits
-No signs of fluid overload
-Obtain 2D echocardiogram/reviewed and no change from prior study of 2021
Hypercholesterolemia
-Continue statin
Essential hypertension
-Persistently elevated while here
-New diagnosis
-Placed on amlodipine 5 mg - titrate up today to 10mg
#Leukocytosis
-2/2 to steroids
-ctm fever curve, wbc
DVT prophylaxis with Lovenox
DNR/DNI per patient's request
Anticipated Discharge: 24 - 48 hours
Subjective/Interval History
-
Date of Service: June 12, 2023
mental status improved; still appears dyspneic
Objective Data
-
Labs:
Laboratory Results
06/12/23
06:10
WBC 18.9 H
Hgb 14.8
Hct 41.9
Plt Count 371 D
Sodium 127 L
Potassium 4.0
Chloride 90 L
Carbon Dioxide 28
BUN 20
Creatinine 0.6 L
Glucose 81
Calcium 9.4
Vital Signs:
Vital Signs
Temp Pulse Resp BP Pulse Ox
97.3 F 94 24 157/107 94
06/12/23 07:27 06/12/23 11:26 06/12/23 11:26 06/12/23 07:46 06/12/23 11:26
I&O
06/11/23 06/12/23 06/13/23
06:59 06:59 06:59
Intake Total 1290 / 1290 810 / 810
Output Total 200 / 200
Balance 1290 / 1290 610 / 610
Review of Systems
-
History Source: Patient
All other systems: Not reviewed unless documented
Physical Exam
-
General: No Apparent Distress and Appears Chronically Ill
HEENT: Normocephalic
Respiratory: Rhonchi and Decreased Breath Sounds
Cardiac: Regular Rhythm
Neuro: Awake, Alert, Oriented and AO x 3
Psych: Anxious
Data Reviewed
-
Total Time Spent with Patient (in minutes): 56
Diagnostic Radiology: Image personally visualized and interpreted and Report Reviewed by me
Labs: Labs Reviewed by me
--- NOTE | 2023-06-12 13:57 | W.PN.PUL3 ---
Today's Communication / Plan
-
Continue nebulizer therapy after discharge
Continue prednisone taper
Hyponatremia management continue
Assessment
-
Mr Renard TRUJILLO is a 77/M adm 06-06 with 6 wks h/o dyspnea with worsening the past one wk. Seen by PCP, given a course of CS with initial improvement than then disappeared, tested negative COVID and flu last wk.
AECOPD-FEV1 830 mL - 42% with significant bronchodilator response
.
Toxic metabolic encephalopathy
Hyponatremia
Normal troponin and BNP
RCA occlusion
Conditions RADIO TALK SHOW HOST:
COPD, very severe emphysema. On trelegy
HLD
Former smoker
Plan:
Not back to baseline-appears dyspneic with activity.
Remains off supplemental oxygen
Bilateral breath sounds are decreased-not wheezing
Has developed toxic metabolic encephalopathy-May be multifactorial from hyponatremia as well as steroids.
Cont with bronchodilators:
Still short of breath with activity. Prolonged expiratory phase.
Patient states that he prefers nebulizers and inhalers.
Okay to discharge from nebulized therapy.
Continue DuoNebs 3 times daily
Continue budesonide twice daily
Hold inhalers, patient does not want it.
Continue incentive spirometry
Continue prednisone 30 mg daily, decrease by 10 mg every 72 hours to off.
Chest x-ray: Reviewed 06/12/2023 no infiltrate, hyperinflation with signs of emphysema.
Mucolytic's/Acapella/incentive spirometry
-
Mental status improved but not back to baseline.
Continue anxiolytics-significant anxiety component, steroids likely also playing a role
Currently sleeping.
Wean steroids as above, hopefully this will continue to improve his mental status.
Cultures negative to date
Empiric antibiotics-doxycycline initiated- finish 06/12/2023
Echocardiogram with normal biventricular function-summarized below
Encourage ambulation, check oxygen requirement prior DC.
Given nocturnal symptoms, may need to consider outpatient sleep evaluat.ion
GERD Therapy
Hyponatremia management per primary team and Nephrology.
Outpatient pulmonary [id number] with Dr. Oglesby-PFTs, yearly low-dose lung cancer screening CT, pulmonary rehab, etc.

Diagnostic tests:
CXR 06-06-23, emphysematous lung baig, flat diaphragms, no infiltrates
H/N CTA 06-05-23
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
The bilateral common and internal carotid arteries are otherwise grossly patent with only mild scattered calcific plaque in the left carotid bulb.
Redemonstration of short segment approximately 50% stenosis of the proximal left subclavian artery
LDCT chest July 2022
IMPRESSION:
There are 2 tiny 1 mm nodules, unchanged in retrospect when compared to 2020. Therefore likely benign.
Severe emphysema.
TTE Dec 2021, normal biventricular function
Subjective Data
-
Date of Service:
Date of Service: June 12, 2023
Chief Complaint: Pulmonary Follow Up and Dyspnea Follow Up
Subjective:
No new pulmonary complaints.
Denies significant phlegm production
Continues to report some dyspnea with activity to the bathroom.
Review of Systems
General: Fever (n)
Cardiopulmonary: Dyspnea (improving), Cough (n) and Sputum Production (n)
GI: Abdominal Pain (n)
Objective Data
Data Reviewed
Vital Signs / I&O / Oxygen:
Vital Signs
Temp Pulse Resp BP Pulse Ox
97.3 F 94 24 157/107 94
06/12/23 07:27 06/12/23 11:26 06/12/23 11:26 06/12/23 07:46 06/12/23 11:26
Intake and Output
06/11/23 06/12/23 06/13/23
06:59 06:59 06:59
Intake Total 1290 / 1290 810 / 810
Output Total 200 / 200
Balance 1290 / 1290 610 / 610
SaO2 94
Nasal Cannula flow liters per 2
minute
Physical Exam
General: Comfortable
HEENT: Normocephalic and Moist Mucous Membranes
Cardiovascular: Regular Rhythm, Murmur (n), Peripheral Edema (n) and Calf Tenderness
Respiratory: Wheeze (n), Crackles (n), Rhonchi (n), Non-Labored Respirations, Stridor (n) and Other (Prolonged expiratory phase.)
GI: Soft, Non Distended and Non Tender
Neurology: Awake, Alert and No Motor Deficits
Skin: Good Color, Cyanosis (n) and Jaundice
Labs/Micro/Reports
Lab Data
06/12/23 06:10
06/12/23 06:10
[2023-06-12 15:00] VITALS: BP 135/79
--- NOTE | 2023-06-12 15:25 | CM ---
Per nursing notes patient is 1:1 and has had bouts of agitation and combativeness. Still not requiring o2. Patient seen ambulating around room independently. Will watch for needs.
Plan: Case management will continue to follow and assist with discharge planning. Patient not at mental baseline as he is confused and agitated.
[2023-06-12] MEDS: CRESTOR 40 MG PO (17:29)
[2023-06-12] MEDS: LOVENOX 40 MG SC (17:29)
[2023-06-12] MEDS: MELATONIN 5 MG PO (22:10)
[2023-06-13 00:18] VITALS: BP 111/79
[2023-06-13] MEDS: DUONEB 3 ML INH ×5 (05:16→20:54)
[2023-06-13 06:32] LABS: Hematocrit 43.1 % (39.0-52.0); Hemoglobin 15.7 g/dL (13.0-18.0); Mean Corp Hgb Conc. 36.4 g/dL (33.0-37.0); Platelet Count 414 10^3/uL (130-400); Red Cell Dist. Width 12.8 % (11.5-14.5); White Blood Cell Count 21.3 10^3/uL (4.8-10.8)
[2023-06-13 06:42] LABS: Blood Urea Nitrogen 16 mg/dl (9-20); Calcium 9.3 mg/dl (8.4-10.2); Carbon Dioxide 29 mmol/L (22-30); Chloride 92 mmol/L (98-107); Estimated Creatinine Clearance 107 ml/min; Glucose 106 mg/dl (70-99); Potassium 3.8 mmol/L (3.5-5.1); Sodium 125 mmol/L (135-145); eGFR > 60.00
[2023-06-13 07:39] VITALS: BP 131/95
[2023-06-13] MEDS: MUCINEX 600 MG PO ×2 (08:13→21:13)
[2023-06-13] MEDS: DELTASONE 30 MG PO (08:14)
[2023-06-13] MEDS: BUSPAR 10 MG PO ×2 (08:14→21:13)
[2023-06-13] MEDS: PEPCID 20 MG PO (08:14)
[2023-06-13] MEDS: NORVASC 10 MG PO (08:14)
[2023-06-13] MEDS: PULMICORT 0.25 MG INH ×2 (08:17→20:54)
[2023-06-13] MEDS: OCUVITE SOFTGEL 1 CAP PO (09:08)
[2023-06-13] MEDS: VIBRAMYCIN 100 MG PO (09:08)
--- NOTE | 2023-06-13 11:22 | W.PN.PUL3 ---
Today's Communication / Plan
-
Nebulizer therapy
Prednisone taper
Increase activity as able.
Hold inhalers.
Outpx pulmonary follow up.
Will sign off.
Assessment
-
Mr Renard TRUJILLO is a 77/M adm [birth year] with 6 wks h/o dyspnea with worsening the past one wk. Seen by PCP, given a course of CS with initial improvement than then disappeared, tested negative COVID and flu last wk.
AECOPD-FEV1 830 mL - 42% with significant bronchodilator response
.
Toxic metabolic encephalopathy
Hyponatremia
Normal troponin and BNP
RCA occlusion
Conditions NETWORK OPERATIONS LEAD:
COPD, very severe emphysema. On trelegy
HLD
Former smoker
Plan:
Much better today -Improved from the pulmonary stand point.
Better air movement.06/13/2023
Remains off supplemental oxygen
Encephalopathy improved, back to baseline.
Cont with bronchodilators:
Patient states that he prefers nebulizers and inhalers.
Okay to discharge from nebulized therapy.
Continue DuoNebs 3-4 times daily
Continue budesonide twice daily
Hold inhalers, patient does not want it.
Continue incentive spirometry
Continue prednisone 30 mg daily, decrease by 10 mg every 72 hours to off.
-
Chest x-ray: Reviewed 06/12/2023 no infiltrate, hyperinflation with signs of emphysema.
Mucolytic's/Acapella/incentive spirometry
-
Cultures negative to date
Empiric antibiotics-doxycycline initiated- finish 06/12/2023
Echocardiogram with normal biventricular function-summarized below
appears euvolemic.
Encourage ambulation.
PT/OT as able.
-
Hyponatremia management per primary team and Nephrology.
No additional recommendations from the pulmonary perspective, will sign off.
Outpatient pulmonary [id number] with Dr. Oglesby-PFTs, yearly low-dose lung cancer screening CT, pulmonary rehab, etc.

Diagnostic tests:
CXR 06-06-23, emphysematous lung baig, flat diaphragms, no infiltrates
H/N CTA 06-05-23
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
The bilateral common and internal carotid arteries are otherwise grossly patent with only mild scattered calcific plaque in the left carotid bulb.
Redemonstration of short segment approximately 50% stenosis of the proximal left subclavian artery
LDCT chest July 2022
IMPRESSION:
There are 2 tiny 1 mm nodules, unchanged in retrospect when compared to 2020. Therefore likely benign.
Severe emphysema.
TTE Dec 2021, normal biventricular function
Subjective Data
-
Date of Service:
Date of Service: June 13, 2023
Chief Complaint: Pulmonary Follow Up and Dyspnea Follow Up
Subjective:
Feels better today.
Coughing with better clearance of secretions.
Mental status improved.
Review of Systems
General: Fever (n)
Cardiopulmonary: Dyspnea (improved), Cough, Sputum Production, Wheezing (n) and Chest Pain (n)
GI: Abdominal Pain (n), Nausea (n) and Vomiting (n)
Objective Data
Data Reviewed
Vital Signs / I&O / Oxygen:
Vital Signs
Temp Pulse Resp BP Pulse Ox
98.1 F 91 18 131/95 98
06/13/23 07:39 06/13/23 08:17 06/13/23 08:17 06/13/23 08:14 06/13/23 08:17
Intake and Output
06/12/23 06/13/23 06/14/23
06:59 06:59 06:59
Intake Total 810 / 810 1240 / 1240
Output Total 200 / 200 1150 / 1150
Balance 610 / 610 90 / 90
SaO2 98
Nasal Cannula flow liters per 2
minute
Physical Exam
General: Comfortable
HEENT: Normocephalic and Moist Mucous Membranes
Cardiovascular: Regular Rhythm, Murmur (n), Peripheral Edema (n) and Calf Tenderness
Respiratory: Wheeze (n), Crackles (n), Rhonchi (n), Non-Labored Respirations, Stridor (n) and Other (Prolonged expiratory phase- improved air movement.)
GI: Soft, Non Distended and Non Tender
Neurology: Awake, Alert, AO x 3 and No Motor Deficits
Skin: Good Color, Cyanosis (n) and Jaundice
Labs/Micro/Reports
Lab Data
06/13/23 06:04
06/13/23 06:04
--- NOTE | 2023-06-13 14:06 | W.PN.NEPH.PH ---
Today's Communication / Plan
-
recheck sodium if low may need 3% saline
check u osmo
Assessment/Plan
-
Assessment
COPD with acute exacerbation
Hyponatremia
Hypercholesterolemia
hypertension
Plan
-sodium low to 125 despite samsca
recheck now if decreasing may need 3% and lasix
cont FR 48oz
-follow BMP
-hyponatremia likely from COPD exacerbation, ADH mediated
d/w pt and
-
-
Date of Service: June 13, 2023
CC / HPI / ROS
-
Chief Complaint:
hyponatremia
History of Present Illness:
Na drop to 125 with samsca 06/11, 06/12
BP stable
on RA
Review of Systems:
no CP
SOB improving, able to walk to bathroom
po intake is better
Labs
-
Labs:
WBC 21.3 10^3/uL (4.8-10.8) H 06/13/23 06:04
RBC 4.90 10^6/uL (4.70-6.10) 06/13/23 06:04
Hgb 15.7 g/dL (13.0-18.0) 06/13/23 06:04
Hct 43.1 % (39.0-52.0) 06/13/23 06:04
Plt Count 414 10^3/uL (130-400) H 06/13/23 06:04
Sodium 125 mmol/L (135-145) L 06/13/23 06:04
Potassium 3.8 mmol/L (3.5-5.1) 06/13/23 06:04
Chloride 92 mmol/L (98-107) L 06/13/23 06:04
Carbon Dioxide 29 mmol/L (22-30) 06/13/23 06:04
BUN 16 mg/dl (9-20) 06/13/23 06:04
Creatinine 0.6 mg/dL (0.7-1.3) L 06/13/23 06:04
eGFR > 60.00 06/13/23 06:04
Glucose 106 mg/dl (70-99) H 06/13/23 06:04
Calcium 9.3 mg/dl (8.4-10.2) 06/13/23 06:04
Gam-V-Zuvkymrglyv Pept 27.7 pg/ml 06/06/23 08:16
Albumin 4.0 g/dl (3.5-5.0) 06/06/23 08:16
Physical Exam
-
Vital Signs:
Vital Signs
Temp Pulse Resp BP Pulse Ox
98.1 F 71 18 131/95 97
06/13/23 07:39 06/13/23 11:50 06/13/23 11:50 06/13/23 08:14 06/13/23 11:50
Cardiovascular:: Regular rate and rhythm
Respiratory:: Bilateral: CTA
Lung Excursion:: Normal
Abdomen:: Nontender and Soft
Extremity Edema:: None: Bilateral:
Koenig Catheter: No
--- NOTE | 2023-06-13 14:36 | W.PN.HOSP.TC ---
Today's Communication/Plan
-
monitor Na, 3% NA
steroids
once Na stabilized, can dc
Assessment / Plan
Assessment / Plan
77 yr. old male w/ hx of� COPD presents to the ED� with� complaints of� shortness of breath.� Patient complains of worsening shortness of breath for the past week.� He has not been able to sleep.� He also complains of no appetite.� He denies any
actual fever or chills.� He has been using inhalers have not been improving his symptoms.� He does not normally wear oxygen.� He is a former smoker.� Quit some 2 years ago he actually states from my interview with he has been short of breath for
last 6 weeks and was actually seen by his PCP and prescribed a steroid course for he got better but shortness of breath and became worse the last couple of days.� He was tested last week for COVID and influenza finding it negative.� He follows with
Dr. Sue on the pulmonary service but seen infrequently and cannot remember the last time he saw her.� He has no cardiac issue history although he has been told he has a heart murmur.
COPD with acute exacerbation
-Chest x-ray clear, no wheezing, although breath sounds diminished
-Reformed smoker x 2 years
-Dyspneic with activity
� Due to encephalopathy, anticipate and hope rapid taper of prednisone
� Continue doxycycline until today 06/12
-Only medication management is with Trelegy
-Had course of steroid management and taper some 6 weeks ago with some improvement but returned
-Maintain O2>88%; weaned off o2 - mid on RA although still dyspneic
-Will treat with IV steroids, DuoNebs, budesonide
-Pulmonary consultation appreciated
-consulted CM for duonebs at home; Was not able to take Trelegy due to cost [place] ($100 monthly); hold inhalers; dc on nebs
#Acute metabolic encephalopathy
-improving
� Possibly secondary to hyponatremia although could also be steroid-induced psychosis; was given ativasn night prior to AMS - i suspect this did not help the matter
� Open anticipate rapid prednisone taper
� Treat hyponatremia
-UA negative
-Avoid benzodiazepines
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
-Unclear etiology without prior history
-Free Water restriction
-Samsca again yesterday; f/u renal recs for 3%
-Urine Osm
Cardiac murmur
-No signs of CHF exacerbation
-BNP within normal limits
-No signs of fluid overload
-Obtain 2D echocardiogram/reviewed and no change from prior study of 2021
Hypercholesterolemia
-Continue statin
Essential hypertension
-Persistently elevated while here
-New diagnosis
-Placed on amlodipine 5 mg - titrate up today to 10mg
#Leukocytosis
-2/2 to steroids
-ctm fever curve, wbc
DVT prophylaxis with Lovenox
DNR/DNI per patient's request
Anticipated Discharge: 24 - 48 hours
Subjective/Interval History
-
Date of Service: June 13, 2023
feeling better
Objective Data
-
Labs:
Laboratory Results
06/13/23 06/13/23
06:04 14:16
WBC 21.3 H
Hgb 15.7
Hct 43.1
Plt Count 414 H
Sodium 125 L Pending
Potassium 3.8
Chloride 92 L
Carbon Dioxide 29
BUN 16
Creatinine 0.6 L
Glucose 106 H
Calcium 9.3
Vital Signs:
Vital Signs
Temp Pulse Resp BP Pulse Ox
98.1 F 71 18 131/95 97
06/13/23 07:39 06/13/23 11:50 06/13/23 11:50 06/13/23 08:14 06/13/23 11:50
I&O
06/12/23 06/13/23 06/14/23
06:59 06:59 06:59
Intake Total 810 / 810 1240 / 1240
Output Total 200 / 200 1150 / 1150
Balance 610 / 610 90 / 90
Review of Systems
-
History Source: Patient
All other systems: Not reviewed unless documented
Data Reviewed
-
Total Time Spent with Patient (in minutes): 56
Diagnostic Radiology: Image personally visualized and interpreted and Report Reviewed by me
Labs: Labs Reviewed by me
[2023-06-13 14:47] LABS: Sodium 125 mmol/L (135-145)
[2023-06-13 15:27] VITALS: BP 117/79
[2023-06-13 15:35] VITALS: PULSE 94; O2SAT 95
--- NOTE | 2023-06-13 15:45 | PTOTSP ---
Patient is independent with functional mobility. No skilled PT needs at this time. Will D/C PT services.
[2023-06-13] MEDS: SODIUM CHLORIDE 3% 250 IV (16:23)
[2023-06-13] MEDS: LASIX 20 MG PO (16:30)
[2023-06-13] MEDS: LOVENOX 40 MG SC (17:26)
[2023-06-13] MEDS: MELATONIN 5 MG PO (21:13)
[2023-06-13 21:36] LABS: Osmolality Urine 563 mOsm/kg (300-900)
[2023-06-13 21:58] LABS: Sodium 128 mmol/L (135-145)
[2023-06-13 23:00] VITALS: BP 139/81
[2023-06-14 06:41] LABS: Hematocrit 41.8 % (39.0-52.0); Hemoglobin 14.9 g/dL (13.0-18.0); Mean Corp Hgb Conc. 35.6 g/dL (33.0-37.0); Mean Corpuscular Hgb 31.9 pg (27.0-31.0); Mean Corpuscular Volume 89.5 fL (80.0-94.0); Platelet Count 410 10^3/uL (130-400); Red Blood Cell Count 4.67 10^6/uL (4.70-6.10); Red Cell Dist. Width 13.2 % (11.5-14.5); White Blood Cell Count 22.3 10^3/uL (4.8-10.8)
[2023-06-14 07:00] VITALS: BP 126/80
[2023-06-14 07:02] LABS: Blood Urea Nitrogen 20 mg/dl (9-20); Calcium 9.3 mg/dl (8.4-10.2); Carbon Dioxide 33 mmol/L (22-30); Chloride 94 mmol/L (98-107); Estimated Creatinine Clearance 107 ml/min; Glucose 93 mg/dl (70-99); Potassium 3.7 mmol/L (3.5-5.1); Sodium 133 mmol/L (135-145); eGFR > 60.00
[2023-06-14] MEDS: PEPCID 20 MG PO (07:12)
[2023-06-14] MEDS: BUSPAR 10 MG PO ×2 (07:12→20:59)
[2023-06-14] MEDS: DELTASONE 30 MG PO (07:12)
[2023-06-14] MEDS: MUCINEX 600 MG PO ×2 (07:12→20:59)
[2023-06-14] MEDS: NORVASC 10 MG PO (07:13)
[2023-06-14] MEDS: PULMICORT 0.25 MG INH ×2 (07:52→19:40)
[2023-06-14] MEDS: DUONEB 3 ML INH ×4 (07:52→19:40)
--- NOTE | 2023-06-14 13:49 | W.PN.HOSP.TC ---
Today's Communication/Plan
-
pred taper
monitor Na additional day to assess for stability
Assessment / Plan
Assessment / Plan
77 yr. old male w/ hx of� COPD presents to the ED� with� complaints of� shortness of breath.� Patient complains of worsening shortness of breath for the past week.� He has not been able to sleep.� He also complains of no appetite.� He denies any
actual fever or chills.� He has been using inhalers have not been improving his symptoms.� He does not normally wear oxygen.� He is a former smoker.� Quit some 2 years ago he actually states from my interview with he has been short of breath for
last 6 weeks and was actually seen by his PCP and prescribed a steroid course for he got better but shortness of breath and became worse the last couple of days.� He was tested last week for COVID and influenza finding it negative.� He follows with
Dr. Sue on the pulmonary service but seen infrequently and cannot remember the last time he saw her.� He has no cardiac issue history although he has been told he has a heart murmur.
COPD with acute exacerbation
-Chest x-ray clear, no wheezing, although breath sounds diminished
-Reformed smoker x 2 years
-Dyspneic with activity
� Due to encephalopathy, drop prednisone 10mg every 72 hours
�Completed doxycycline course 06/12
-Only medication management is with Trelegy
-Had course of steroid management and taper some 6 weeks ago with some improvement but returned
-Maintain O2>88%; weaned off o2 - mid on RA although still dyspneic
-Will treat with IV steroids, DuoNebs, budesonide
-Pulmonary consultation appreciated
-consulted CM for duonebs at home; Was not able to take Trelegy due to cost [place] ($100 monthly); hold inhalers; dc on nebs
#Acute metabolic encephalopathy
-improving
� Possibly secondary to hyponatremia although could also be steroid-induced psychosis; was given ativasn night prior to AMS - i suspect this did not help the matter
� Open anticipate rapid prednisone taper
� Treat hyponatremia
-UA negative
-Avoid benzodiazepines
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
-Unclear etiology without prior history
-Free Water restriction
-S/p Samsca; f/u renal recs for 3%
-Urine Osm
-Monitor 1 additional day prior to dc to ensure stability
Cardiac murmur
-No signs of CHF exacerbation
-BNP within normal limits
-No signs of fluid overload
-Obtain 2D echocardiogram/reviewed and no change from prior study of 2021
Hypercholesterolemia
-Continue statin
Essential hypertension
-Persistently elevated while here
-New diagnosis
-Placed on amlodipine 5 mg - titrate up today to 10mg
#Leukocytosis
-2/2 to steroids
-ctm fever curve, wbc
DVT prophylaxis with Lovenox
DNR/DNI per patient's request
Anticipated Discharge: Within 24 hours
Subjective/Interval History
-
Date of Service: June 14, 2023
No acute events overnight
Objective Data
-
Labs:
Laboratory Results
06/14/23
06:08
WBC 22.3 H
Hgb 14.9
Hct 41.8
Plt Count 410 H
Sodium 133 L
Potassium 3.7
Chloride 94 L
Carbon Dioxide 33 H
BUN 20
Creatinine 0.6 L
Glucose 93
Calcium 9.3
Vital Signs:
Vital Signs
Temp Pulse Resp BP Pulse Ox
96.8 F L 72 16 126/80 97
06/14/23 07:00 06/14/23 11:15 06/14/23 11:15 06/14/23 07:13 06/14/23 11:15
I&O
06/13/23 06/14/23 06/15/23
06:59 06:59 06:59
Intake Total 1240 / 1240 1080 / 1080
Output Total 1150 / 1150 475 / 475
Balance 90 / 90 605 / 605
Review of Systems
-
History Source: Patient
All other systems: Not reviewed unless documented
Physical Exam
-
General: No Apparent Distress and Appears Chronically Ill
HEENT: Normocephalic
Respiratory: Rhonchi and Decreased Breath Sounds
Cardiac: Regular Rhythm
Neuro: Awake, Alert, Oriented and AO x 3
Data Reviewed
-
Total Time Spent with Patient (in minutes): 56
Diagnostic Radiology: Image personally visualized and interpreted and Report Reviewed by me
Labs: Labs Reviewed by me
--- NOTE | 2023-06-14 14:59 | CM ---
Patient continues to function independently. No skilled needs noted by medical staff.
Plan: Case management will continue to follow and assist with discharge planning. Home when stable.
--- NOTE | 2023-06-14 15:09 | W.PN.NEPH.PH ---
Today's Communication / Plan
-
see plan
Assessment/Plan
-
Assessment
COPD with acute exacerbation
Hyponatremia
Hypercholesterolemia
hypertension
Plan
-sodium better at 133 with 3% and lasix
cont FR 40oz
-may benefit from lasix at d/c
-hyponatremia likely from COPD exacerbation, ADH mediated
d/w pt and primary
if sodium stable tomorrow likely d/c
BMP in 1week with PCP
-
-
Date of Service: June 14, 2023
CC / HPI / ROS
-
Chief Complaint:
hyponatremia
History of Present Illness:
Na better at 133 s/p 3% saline and lasix po
BP stable
on RA
Review of Systems:
no CP
SOB improving,
no other complaints
Labs
-
Labs:
WBC 22.3 10^3/uL (4.8-10.8) H 06/14/23 06:08
RBC 4.67 10^6/uL (4.70-6.10) L 06/14/23 06:08
Hgb 14.9 g/dL (13.0-18.0) 06/14/23 06:08
Hct 41.8 % (39.0-52.0) 06/14/23 06:08
Plt Count 410 10^3/uL (130-400) H 06/14/23 06:08
Sodium 133 mmol/L (135-145) L 06/14/23 06:08
Potassium 3.7 mmol/L (3.5-5.1) 06/14/23 06:08
Chloride 94 mmol/L (98-107) L 06/14/23 06:08
Carbon Dioxide 33 mmol/L (22-30) H 06/14/23 06:08
BUN 20 mg/dl (9-20) 06/14/23 06:08
Creatinine 0.6 mg/dL (0.7-1.3) L 06/14/23 06:08
eGFR > 60.00 06/14/23 06:08
Glucose 93 mg/dl (70-99) 06/14/23 06:08
Calcium 9.3 mg/dl (8.4-10.2) 06/14/23 06:08
Fei-V-Csyvhxrqchs Pept 27.7 pg/ml 06/06/23 08:16
Albumin 4.0 g/dl (3.5-5.0) 06/06/23 08:16
Physical Exam
-
Vital Signs:
Vital Signs
Temp Pulse Resp BP Pulse Ox
96.8 F L 72 16 126/80 97
06/14/23 07:00 06/14/23 11:15 06/14/23 11:15 06/14/23 07:13 06/14/23 11:15
Cardiovascular:: Regular rate and rhythm
Respiratory:: Bilateral: Coarse
Lung Excursion:: Normal
Abdomen:: Nontender and Soft
Extremity Edema:: None: Bilateral:
Koenig Catheter: No
[2023-06-14 15:30] VITALS: BP 116/79
[2023-06-14 16:57] VITALS: BP 141/78; PULSE 95; O2SAT 94
--- NOTE | 2023-06-14 17:12 | PTOTSP ---
Pt currently at mod I/I level with basic self care, transfers and functional mobility in room and bathroom without AD. No further skilled OT indicated at this time.
[2023-06-14] MEDS: CRESTOR 40 MG PO (17:32)
[2023-06-14] MEDS: LOVENOX 40 MG SC (17:32)
[2023-06-14] MEDS: MELATONIN 5 MG PO (21:00)
[2023-06-14 23:50] VITALS: BP 136/84
[2023-06-15 06:55] LABS: Hematocrit 43.8 % (39.0-52.0); Hemoglobin 15.6 g/dL (13.0-18.0); Mean Corp Hgb Conc. 35.6 g/dL (33.0-37.0); Mean Corpuscular Hgb 32.6 pg (27.0-31.0); Mean Corpuscular Volume 91.4 fL (80.0-94.0); Platelet Count 448 10^3/uL (130-400); Red Blood Cell Count 4.79 10^6/uL (4.70-6.10); Red Cell Dist. Width 13.5 % (11.5-14.5); White Blood Cell Count 23.7 10^3/uL (4.8-10.8)
[2023-06-15] MEDS: DUONEB 3 ML INH ×2 (07:14→11:16)
[2023-06-15] MEDS: PULMICORT 0.25 MG INH (07:14)
[2023-06-15 07:21] LABS: Blood Urea Nitrogen 23 mg/dl (9-20); Calcium 9.4 mg/dl (8.4-10.2); Carbon Dioxide 34 mmol/L (22-30); Chloride 98 mmol/L (98-107); Estimated Creatinine Clearance 107 ml/min; Glucose 90 mg/dl (70-99); Potassium 4.2 mmol/L (3.5-5.1); Sodium 136 mmol/L (135-145); eGFR > 60.00
[2023-06-15] MEDS: BUSPAR 10 MG PO (07:59)
[2023-06-15] MEDS: DELTASONE 20 MG PO (07:59)
[2023-06-15] MEDS: MUCINEX 600 MG PO (07:59)
[2023-06-15] MEDS: NORVASC 10 MG PO (07:59)
[2023-06-15] MEDS: PEPCID 20 MG PO (07:59)
[2023-06-15] MEDS: OCUVITE SOFTGEL 1 CAP PO (08:02)
[2023-06-15 08:36] VITALS: BP 124/76
--- NOTE | 2023-06-15 11:35 | W.PN.NEPH.PH ---
Today's Communication / Plan
-
lasix
Assessment/Plan
-
Assessment
COPD with acute exacerbation
Hyponatremia
Hypercholesterolemia
hypertension
Plan
lasix 10mg daily
BMP in 1-2 weeks, may not require lasix jail
-
-
Date of Service: June 15, 2023
CC / HPI / ROS
-
Chief Complaint:
hyponatremia
History of Present Illness:
Na better at 136
BP stable
on RA
Review of Systems:
no CP
SOB improving,
no other complaints
Labs
-
Labs:
WBC 23.7 10^3/uL (4.8-10.8) H 06/15/23 06:17
RBC 4.79 10^6/uL (4.70-6.10) 06/15/23 06:17
Hgb 15.6 g/dL (13.0-18.0) 06/15/23 06:17
Hct 43.8 % (39.0-52.0) 06/15/23 06:17
Plt Count 448 10^3/uL (130-400) H 06/15/23 06:17
Sodium 136 mmol/L (135-145) 06/15/23 06:17
Potassium 4.2 mmol/L (3.5-5.1) 06/15/23 06:17
Chloride 98 mmol/L (98-107) 06/15/23 06:17
Carbon Dioxide 34 mmol/L (22-30) H 06/15/23 06:17
BUN 23 mg/dl (9-20) H 06/15/23 06:17
Creatinine 0.6 mg/dL (0.7-1.3) L 06/15/23 06:17
eGFR > 60.00 06/15/23 06:17
Glucose 90 mg/dl (70-99) 06/15/23 06:17
Calcium 9.4 mg/dl (8.4-10.2) 06/15/23 06:17
Mgf-Q-Yabmkwehcae Pept 27.7 pg/ml 06/06/23 08:16
Albumin 4.0 g/dl (3.5-5.0) 06/06/23 08:16
Physical Exam
-
Vital Signs:
Vital Signs
Temp Pulse Resp BP Pulse Ox
98 F 89 17 124/76 96
06/15/23 08:36 06/15/23 08:36 06/15/23 08:36 06/15/23 08:36 06/15/23 08:36
Cardiovascular:: Regular rate and rhythm
Respiratory:: Bilateral: Coarse
Lung Excursion:: Normal
Abdomen:: Nontender and Soft
Bowel Sounds:: Normal
Extremity Edema:: None: Bilateral:
--- NOTE | 2023-06-15 12:27 | W.PN.HOSP.TC ---
Addendum entered and electronically signed by Babak Jones MD 06/15/23 17:15:
[id number]
Original Note:
Today's Communication/Plan
-
pred taper
amlodipine
nebulizers prn on dc
lasix 10mg daily
f/u bmp and cbc in 1 week
Assessment / Plan
Assessment / Plan
77 yr. old male w/ hx of� COPD presents to the ED� with� complaints of� shortness of breath.� Patient complains of worsening shortness of breath for the past week.� He has not been able to sleep.� He also complains of no appetite.� He denies any
actual fever or chills.� He has been using inhalers have not been improving his symptoms.� He does not normally wear oxygen.� He is a former smoker.� Quit some 2 years ago he actually states from my interview with he has been short of breath for
last 6 weeks and was actually seen by his PCP and prescribed a steroid course for he got better but shortness of breath and became worse the last couple of days.� He was tested last week for COVID and influenza finding it negative.� He follows with
Dr. Sue on the pulmonary service but seen infrequently and cannot remember the last time he saw her.� He has no cardiac issue history although he has been told he has a heart murmur.
COPD with acute exacerbation
-Chest x-ray clear, no wheezing, although breath sounds diminished
-Reformed smoker x 2 years
-Dyspneic with activity
� Due to encephalopathy, drop prednisone 10mg every 72 hours until off
�Completed doxycycline course 06/12
-Only medication management is with Trelegy
-Had course of steroid management and taper some 6 weeks ago with some improvement but returned
-Maintain O2>88%; weaned off o2 - mid on RA although still dyspneic
-Will treat with IV steroids, DuoNebs, budesonide
-Pulmonary consultation appreciated
-consulted CM for duonebs at home; Was not able to take Trelegy due to cost [place] ($100 monthly); states he still buys it, can continue until followed by pulmonary. Dc on DuoNebs every 6 as needed
#Acute metabolic encephalopathy
�Resolved
� Possibly secondary to hyponatremia although could also be steroid-induced psychosis; was given ativasn night prior to AMS - i suspect this did not help the matter
� Open anticipate rapid prednisone taper
� Treat hyponatremia
-UA negative
-Avoid benzodiazepines
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
-Unclear etiology without prior history
-Free Water restriction
-S/p Samsca; s/p 3%
-Urine Osm
-Lasix 10mg daily
-F/u BMP in 1 week with pcp/nephro
Cardiac murmur
-No signs of CHF exacerbation
-BNP within normal limits
-No signs of fluid overload
-Obtain 2D echocardiogram/reviewed and no change from prior study of 2021
Hypercholesterolemia
-Continue statin
Essential hypertension
-Persistently elevated while here
-New diagnosis
-Placed on amlodipine 5 mg - titrate up today to 10mg
#Leukocytosis
-2/2 to steroids
-ctm fever curve, wbc
-f/u cbc in 1 week
DVT prophylaxis with Lovenox
DNR/DNI per patient's request
More than 30 minutes spent in discharge including
Final examination of the patient
Summarizing hospital stay
Instructions for continuing care to all relevant caregivers
Preparation of discharge records, prescriptions, and referral forms
Total time spent (35 in minutes):
Anticipated Discharge: Today
Subjective/Interval History
-
Date of Service: June 15, 2023
No acute events overnight, sodium improving
Objective Data
-
Labs:
Laboratory Results
06/15/23
06:17
WBC 23.7 H
Hgb 15.6
Hct 43.8
Plt Count 448 H
Sodium 136
Potassium 4.2
Chloride 98
Carbon Dioxide 34 H
BUN 23 H
Creatinine 0.6 L
Glucose 90
Calcium 9.4
Vital Signs:
Vital Signs
Temp Pulse Resp BP Pulse Ox
98 F 89 17 124/76 96
06/15/23 08:36 06/15/23 08:36 06/15/23 08:36 06/15/23 08:36 06/15/23 08:36
I&O
06/14/23 06/15/23 06/16/23
06:59 06:59 06:59
Intake Total 1080 / 1080 900 / 900
Output Total 475 / 475 450 / 450
Balance 605 / 605 450 / 450
Review of Systems
-
History Source: Patient
All other systems: Not reviewed unless documented
Data Reviewed
-
Total Time Spent with Patient (in minutes): 56
Diagnostic Radiology: Image personally visualized and interpreted and Report Reviewed by me
Labs: Labs Reviewed by me
[2023-06-15] MEDS: DUONEB INH (15:21)
--- NOTE | 2023-06-28 16:52 | W.DS.TRANS ---
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
-
Discharge Instructions:
Discharge Diagnosis/Procedures COPD with acute exacerbation
Hyponatremia
Diet Low Fat,Regular,Restrict fluids to 48 oz
Blood Work cbc and bmp in 1 week with pcp/nephrology
Instructions:
Stand-Alone Forms:
Changes to Home Medications: Yes
Discharge Medications:
DC Medications w/original date entered in [facility]
fluticasone fur. 200 mcg-umeclid 62.5 mcg-vilant 25 mcg inhalat.powder (Trelegy Ellipta) 1 inh IH R DAILY SOB 03/28/21
multivitamin with folic acid 400 mcg tablet (Tab-A-Fifi) 1 tab PO DAILY Supplement 03/28/21
vit C 250 mg-vit E 90 mg-zinc 40 mg-copper 1 hv-vrcndn-ruwdmu capsule (PreserVision AREDS-2) 1 ea PO MOWEFR Supplement 03/28/21
rosuvastatin 40 mg tablet (Crestor) 40 mg PO Q48H High Cholesterol 06/06/23
sildenafil 50 mg tablet 50 mg PO DAILY PRN ed 06/06/23
amlodipine 10 mg tablet 10 mg PO DAILY 30 days #30 tabs 06/15/23
furosemide 20 mg tablet 10 mg PO DAILY 30 days #15 tabs 06/15/23
ipratropium 0.5 mg-albuterol 3 mg (2.5 mg base)/3 mL nebulization soln 3 ml inhalation R Q6HPRN PRN shortness of breath or wheezing #180 mL 06/15/23
prednisone 10 mg tablet See Rx Instructions .Route .COMPLEX #10 tabs 06/15/23
Home Medication Changes
amlodipine 10 mg tablet 10 mg PO DAILY 30 days #30 tabs 06/15/23
furosemide 20 mg tablet 10 mg PO DAILY 30 days #15 tabs 06/15/23
ipratropium 0.5 mg-albuterol 3 mg (2.5 mg base)/3 mL nebulization soln 3 ml inhalation R Q6HPRN PRN shortness of breath or wheezing #180 mL 06/15/23
prednisone 10 mg tablet See Rx Instructions .Route .COMPLEX #10 tabs 06/15/23
Pending Results: No
== END 2023-06-15 15:43 | disposition home or self-care (01) | DRG 190 ==
LOC: 3 WEST ACU 11:04
PROVIDERS: Internal Medicine; Nurse Practitioner; ADMITTING PHYSICIAN Internal Medicine; ATTENDING PHYSICIAN Internal Medicine; CONSULT PHYSICIAN Internal Medicine Pulmonary Disease; EMERGENCY PHYSICIAN Emergency Medicine; FAMILY PHYSICIAN Family Medicine; OTHER PHYSICIAN Specialist
DX: J43.9 Emphysema, unspecified (principal); G93.41 Metabolic encephalopathy; E22.2 Syndrome of inappropriate secretion of antidiuretic hormone; I65.23 Occlusion and stenosis of bilateral carotid arteries; F17.200 Nicotine dependence, unspecified, uncomplicated; I10 Essential (primary) hypertension; T42.4X5A Adverse effect of benzodiazepines, initial encounter; R01.1 Cardiac murmur, unspecified; F09 Unspecified mental disorder due to known physiological condition; T38.0X5A Adverse effect of glucocorticoids and synthetic analogues, initial encounter; Y92.239 Unspecified place in hospital as the place of occurrence of the external cause; K21.9 Gastro-esophageal reflux disease without esophagitis; E78.00 Pure hypercholesterolemia, unspecified; D72.829 Elevated white blood cell count, unspecified; Z66 Do not resuscitate; Z88.6 Allergy status to analgesic agent
CPT/HCPCS: 71045; 71046; 80048; 80053; 81003; 82570; 82805; 83880; 83935; 84295; 84300; 84484; 85025; 85027; 85610; 85730; 93005; 93306; 94060; 94640; 94644; 94761; 96374; 97162; 97165; 99285

== ENCOUNTER → 2023-07-18 11:31 | Outpatient (REF) | payer OTHER, SELFPAY | LOC: DHCBC/DCA 11:31 | PROVIDERS: ATTENDING PHYSICIAN Internal Medicine Cardiovascular Disease; FAMILY PHYSICIAN Family Medicine | DX: Z01.810 Encounter for preprocedural cardiovascular examination (principal) | CPT/HCPCS: 78452; 93017; A9500; J2785 ==

== ENCOUNTER 2023-07-25 06:19 | Inpatient (IN) | payer OTHER, SELFPAY ==
[2023-07-20 09:18] VITALS: BMI 22.9
[2023-07-20 10:05] LABS: % Basophils 1.3 % (0-2); % Eosinophils 2.9 % (0-6); % Immature Granulocytes 0.6 % (0-0.5); % Monocytes 7.1 % (1.7-9.3); % Neutrophils 69.1 % (42.2-75.2); Absolute Basophils 0.1 10^3/uL (0-0.2); Absolute Eosinophils 0.3 10^3/uL (0-0.7); Absolute Immature Granulocytes 0.1 10^3/uL (0-0.05); Absolute Lymphocytes 1.8 10^3/uL (1.2-3.4); Absolute Monocytes 0.7 10^3/uL (0.1-0.6); Absolute Neutrophils 6.5 10^3/uL (1.4-6.5); Hematocrit 41.8 % (39.0-52.0); Hemoglobin 14.1 g/dL (13.0-18.0); Mean Corp Hgb Conc. 33.7 g/dL (33.0-37.0); Mean Corpuscular Hgb 31.8 pg (27.0-31.0); Mean Corpuscular Volume 94.1 fL (80.0-94.0); Nucleated Red Blood Cells % 0 % (-); Platelet Count 330 10^3/uL (130-400); Red Blood Cell Count 4.44 10^6/uL (4.70-6.10); Red Cell Dist. Width 15.1 % (11.5-14.5); White Blood Cell Count 9.4 10^3/uL (4.8-10.8)
[2023-07-20 10:13] LABS: INR 0.96; PT 12.6 Sec (11.4-14.6)
[2023-07-20 10:14] LABS: APTT 30.2 Sec (23.4-35.0)
[2023-07-20 10:15] LABS: Blood Urea Nitrogen 12 mg/dl (9-20); Carbon Dioxide 26 mmol/L (22-30); Chloride 99 mmol/L (98-107); Estimated Creatinine Clearance 93 ml/min; Glucose 86 mg/dl (70-99); Sodium 137 mmol/L (135-145); eGFR > 60.00
[2023-07-20 10:28] LABS: Potassium 4.1 mmol/L (3.5-5.1)
[2023-07-25] VITALS (19 sets, daily range): BP systolic 106–171; BP diastolic 67–124
[2023-07-25] MEDS: PERIDEX 0.12% ORAL RINSE 15 ML PO (06:34)
[2023-07-25] MEDS: BACTROBAN NASAL 1 GRAM NASAL (06:34)
[2023-07-25] MEDS: NSS 500 IV (06:47)
--- NOTE | 2023-07-25 06:57 | W.SUR.PREOP ---
Pre-Operative Surgical Note
-
I have examined this patient prior to the performance of the scheduled procedure.
The patient's condition is unchanged from the time of the current History and
Physical and the patient is able to undergo the scheduled procedure.
[2023-07-25] MEDS: MORPHINE SULFATE 1 MG IV ×3 (10:30→11:34)
[2023-07-25 10:43] LABS: Hematocrit 36.8 % (39.0-52.0); Hemoglobin 12.8 g/dL (13.0-18.0); Mean Corp Hgb Conc. 34.8 g/dL (33.0-37.0); Mean Corpuscular Hgb 32.5 pg (27.0-31.0); Mean Corpuscular Volume 93.4 fL (80.0-94.0); Mean Platelet Volume 9.2 fL (7.4-10.4); Platelet Count 265 10^3/uL (130-400); Red Blood Cell Count 3.94 10^6/uL (4.70-6.10); Red Cell Dist. Width 15.1 % (11.5-14.5); White Blood Cell Count 10.3 10^3/uL (4.8-10.8)
[2023-07-25] MEDS: ZOFRAN 4 MG IV (10:47)
[2023-07-25 10:52] LABS: APTT 32.3 Sec (23.4-35.0); INR 1.07; PT 13.9 Sec (11.4-14.6)
[2023-07-25 10:55] LABS: Blood Urea Nitrogen 12 mg/dl (9-20); Calcium 8.5 mg/dl (8.4-10.2); Carbon Dioxide 23 mmol/L (22-30); Chloride 105 mmol/L (98-107); Estimated Creatinine Clearance 109 ml/min; Glucose 96 mg/dl (70-99); Potassium 4.1 mmol/L (3.5-5.1); Sodium 133 mmol/L (135-145); eGFR > 60.00
[2023-07-25] MEDS: NSS 1000 IV ×2 (11:19→20:46)
[2023-07-25] MEDS: NITROGLYCERIN PREMIX 250 IV (11:19)
--- NOTE | 2023-07-25 11:45 | SUR.PHASEI ---
Pt unable to void. Bladder scanned for 739 of urine. Ana Maria Mejia notified and straight cath ordered and and straight cathed for 700ml of clear yellow urine
[2023-07-25] MEDS: ROXICODONE 5 MG PO (12:18)
[2023-07-25] MEDS: CRESTOR 40 MG PO (12:19)
--- NOTE | 2023-07-25 12:39 | CON.INTV ---
Consultation
Consultation Request
Date/Time Consultation Requested: 07/25/23
Date/Time Consultation Performed: 07/25/23
Reason for Consultation: Critical care
Medical History
-
History of Present Illness:
History obtained from the patient, [id number]-lm-[id number] at bedside, reviewing hospital records and outpatient records. 77-year-old male with history of COPD, right carotid stenosis, hyperlipidemia, tobacco history who is status post right carotid
endarterectomy without complication. Presently he has some mild incisional discomfort which has improved. He does have some baseline shortness of breath with activity but lives independently, able to complete activities without difficulty.
Walks regularly 1 mile. Of note he was hospitalized recently with COPD exacerbation
.
PMH: Hypertension, hyperlipidemia, BPH with urinary obstruction, aortic stenosis, COPD/emphysema, history of TURP 2017, left inguinal hernia repair, hemorrhoidectomy, bladder diverticulum surgery 2021.
Past Medical History
Past Medical History: None (See HPI)
Past Surgical History: None (See HPI)
Social History
Tobacco: Former Smoker ( 10-pnug-hakh, quit 2019)
Alcohol: Occasional
Drug: None
Personal:
Living: Alone
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
Environmental Exposures: asbestos exposure
Family History
Family History: Other (Parents from natural causes. Family history negative for lung disease, blood clots)
Allergies / Home Medications
Allergies
Allergy/AdvReac Type Severity Reaction Status Date / Time
Yqemjai-UTL-FgQ Reductase Allergy leg Verified 07/25/23 07:00
Inhibitor swelling/rash
Home Medications
�Medication �Instructions �Recorded �Confirmed �Last Taken �Type
multivitamin with folic acid 400 1 tab PO DAILY Supplement 03/28/21 07/25/23 06/05/23 History
mcg tablet (Tab-A-Fifi)
rosuvastatin 40 mg tablet (Crestor) 40 mg PO Q48H High Cholesterol 06/06/23 07/25/23 07/24/23 07:00 History
sildenafil 50 mg tablet 50 mg PO PRN PRN ed 06/06/23 07/25/23 07/23/23 18:00 History
Calcium + D 1 tab PO .OCCASIONALLY Supplement 07/16/23 07/25/23 Unknown History
T[place]ese Grapeseed 1 tab PO .OCCASIONALLY Supplement 07/16/23 07/25/23 Unknown History
Vision Formula (with lutein) 1 tab PO .OCCASIONALLY Supplement 07/16/23 07/25/23 Unknown History
aspirin 81 mg tablet 81 mg PO DAILY Blood Clot 07/16/23 07/25/23 07/24/23 07:00 History
Prevention/Tx
ipratropium 0.5 mg-albuterol 3 mg 3 ml inhalation .Q6HPRN PRN 07/16/23 07/25/23 Unknown History
(2.5 mg base)/3 mL nebulization shortness of breath or wheezing
soln
fluticasone fur. 200 mcg-umeclid 1 inh inhalation DAILY 07/25/23 07/25/23 Unknown History
62.5 mcg-vilant 25 mcg Lung/Breathing Issues
inhalat.powder (Trelegy Ellipta)
Review of Systems
-
All other systems: Negative unless noted
Vitals / Labs / Diagnostic Testing
Vital Signs
Temp Pulse Resp BP Pulse Ox
97.5 F 68 10 162/92 98
07/25/23 12:25 07/25/23 11:30 07/25/23 11:30 07/25/23 11:30 07/25/23 11:45
Lab Data
07/25/23 10:30
07/25/23 10:30
Laboratory Results
07/25/23
10:30
PT 13.9
INR 1.07
APTT 32.3
Diagnostic Testing:
Physical Exam
-
HEENT: Normocephalic, Anicteric, Other (Right carotid incision intact) and Other (A-line)
Cardiovascular: S1/S2, Regular Rhythm, Murmur (1-2/6 systolic murmur), Rub (n), Peripheral Edema (n) and Calf Tenderness (n)
Respiratory: Wheeze (n), Rales (n), Rhonchi (n) and Non-Labored Respirations
GI: Soft, Non Distended and Non Tender
Neurology: Awake, Alert, Oriented and No Motor Deficits (Cranial nerves intact, no tongue deviation)
Skin: Other (No skin rash, no clubbing)
General: Comfortable
Assessment
-
77-year-old male with history of right carotid stenosis, hypertension/hyperlipidemia, COPD/emphysema status post right carotid endarterectomy 07/25/23 without complication
S/p RCEA 07/25/23
Mild hyponatremia
Appears chronic
Conditions present prior to admission
Hypertension/hyperlipidemia
BPH
Severe emphysema
Mild pulmonary hypertension
60+ pack-year history of smoking, quit 2019
Asbestos exposure history
Plan/recommendations
At this time, patient appears to be stable
Critically ill post right carotid endarterectomy, hemodynamics adequate
Patient had right incisional discomfort, now improved
Describes mild shortness of breath at baseline
Recent hospital stay at 2023 reviewed, treated for COPD exacerbation
Moving forward
Continue with supportive care
Continue IV fluids
Follow blood pressure, heart rate
Target values per vascular surgery
Neurological exam nonfocal, follow neurochecks
Preoperative EKG and chest x-ray unremarkable
Await repeat EKG
Hyponatremia appears to be chronic
Continue Symbicort/Spiriva
Patient recently weaned off steroids about 1 month ago
Maintain Trelegy inhaler, patient taking only as needed.
Reviewed recent CT imaging, severe emphysema, stable nodule noted
Continue low-dose lung cancer screening, as outpatient
Reviewed with critical care nursing, respiratory care, pharmacy
Will follow
TCCT 31 min
--- NOTE | 2023-07-25 13:05 | PTCARENOTE ---
Pt arrived to Rm 3366 at 1200 via bed from PACU, awake and talkative, c/o Rt sided headache and Rt shoulder discomfort. Rt radial Archana noted and transduced, level-balanced and zeroed, waveform WNL. Pt received w/ Ntg gtt infusing at 5 mcg/min to
keep SBP 110-165. See worklist intervention for titration doses/times. Physical assessment completed. Pt ox3, conversation appropriate. MAEWx4 w/ equal strength bilaterally. Tongue midline/smile symmetrical. Incision to Rt neck well approximated w/
surgical adhesive- very slight ecchymosis noted along incision. No edema. IVF of NS infusing at 80ml/hr per order. Pt medicated for pain as documented in JUN. Orientation provided to pt re: call josefina, room, unit, plan of care. Pt's daughter and
son-in-law in room to visit. Pt tolerating kerry-nola w/o c/o nausea. Pt ordered clear liquid lunch. Call josefina w/in pt reach and safe environment maintained.
--- NOTE | 2023-07-25 15:27 | PTCARENOTE ---
Pt sitting up in bed eating second order of lunch- tolerated clear liquid tray and once diet advanced, ordered additional lunch of hot roast beef sandwich. Tolerating increased diet w/o nausea. Ntg gtt off per BP parameters (see work list
intervention for time). Systolic ABG 120-140's. Neuro assessment unchanged. Pt's daughter gone home for evening. Pt trialed off O2 w/ POx down to 88% on RA while awake. O2 replaced at 2l/min via NC w/ POx 97%.
--- NOTE | 2023-07-25 15:48 | OR.RPT ---
Operative Report
Operative Report
PROCEDURE DATE: 07/25/2023
Preoperative diagnosis: Critical/severe right carotid artery stenosis, asymptomatic.
Postoperative diagnosis: Same
Procedure: Right carotid endarterectomy with bovine pericardial patch angioplasty and intraoperative EEG/SSEP monitoring.
Surgeon: Cruz
Vault Clerk: ESTER Mejia, required for all aspects of procedure including assistance with traction/countertraction, following of suture line, assistance with closure.
Complications: None
Anesthesia: General
Indications for procedure:
77-year-old male with severe right carotid artery stenosis. CT scan demonstrated string-like near occlusive stenosis with severe noncalcified soft plaque. Risk/benefits/alternatives of revascularization were fully discussed. Patient understood
all wish to proceed.
Description of procedure:
Patient was identified brought to the operating room placed on the table in supine position. After the adequate administration of anesthesia and perioperative antibiotics he was prepped and draped in the standard surgical fashion. A standard
preoperative timeout was undertaken and everybody was in agreement the plan. A standard longitudinal incision was made in the right neck that was carried through the skin subcutaneous tissue. Using the electrocautery dissection was carried through
the platysma muscle layer and then alongside the anterior medial border of the sternocleidomastoid muscle. Then using a combination of sharp dissection with the Metzenbaum scissors and electrocautery I dissected along the anterior medial border of
the internal jugular vein. There was no crossing common facial vein branch. However we just dissected along the anterior medial border of the internal jugular vein. I then deepened my retraction. The common carotid artery was identified and
carefully dissected away from the surrounding structures take great care to avoid any injury to the structures. A vessel loop was passed around it which was double looped, but not yet tightened. Note the vagus nerve was protected from harm's way.
I then continued my dissection up the common carotid artery to the bulb staying only on the anterior surface of the carotid artery. Then I carried the dissection up to the internal carotid artery and then to the distal internal carotid artery. I
identified where it was soft and carefully circumferentially dissected the internal carotid artery with minimal mobilization and passed a vessel loop around it. Of note, the internal carotid artery distally was slightly on the smaller side. Note
the hypoglossal nerve was visualized clearly and preserved from harm's way. In addition there was a branch coming from the vicinity of the hypoglossal nerve likely in ansa hypoglossal branch that was preserved on the left. The patient was given an
appropriate dose of heparin 7000 units. Next I dissected the anterior surface of the external carotid artery and superior thyroid branches. These were then carefully circumferentially dissected with minimal mobilization and vessel loops passed
around these which were double looped but not yet tightened. After 3 minutes of heparin circulation time and confirmation of optimization of the blood pressure with my anesthesiology colleagues, I clamped the distal internal carotid artery where it
was soft. There was no immediate EEG or SSEP changes. After 1 minute of test clamp time there was no changes noted. Therefore at this point, the vessel loops on the external carotid artery and superior thyroid branches were tightened and the
common carotid artery was clamped where it was soft proximally. An arteriotomy was made on the common carotid artery with an 11 blade and extended using a Fraser scissor. We extended the arteriotomy onto the mid to distal internal carotid artery.
In the proximal internal carotid artery we encountered severe hemorrhagic/friable soft and noncalcified plaque. This resulted in significant luminal stenosis as noted on CT scan. A [place] was then used to endarterectomized the plaque. An
endarterectomy plane was created, and the plaque was then endarterectomized. Distally I feathered the plaque out to a nice clean endpoint in the distal internal carotid artery. Next I endarterectomized the intima back to normal intima in the
common carotid artery, and the intima was cut flush there. I then grasped the plaque and everted plaque out of the origin of the external carotid artery. The plaque was then sent off for specimen. The origin of the external carotid artery was
carefully visualized and any fine debris were removed with fine forceps. Proximal and distal endpoints were then carefully inspected. Any fine debris was removed with fine forceps, and the intima was noted to be nicely adherent proximally
distally. Next any fine debris were removed throughout the endarterectomy bed with fine forceps. I then flushed heparinized saline. I was very satisfied. Then, I used a bovine pericardial patch to sew a patch angioplasty with a running 6-0
Prolene suture. Prior to completing and tying down my suture line, I backbled sequentially each branch and reclamped each branch prior to unclamping the next branch. I then irrigated with heparinized saline. Then I completed and tied down my
suture line. We then restored flow in the common carotid and external carotid arteries. Finally, we released flow in the internal carotid artery. There was excellent pulsatile flow in all 3 vessels. There was an excellent Doppler signal in the
internal carotid artery distal to the patch with a good normal low resistance Doppler signal. There was a good Doppler signal in the external carotid artery as well. A couple 6-0 Prolene pjwoqj-gq-imaxd sutures were placed along any bleeding
points along the suture line. Protamine was given to reverse the heparin. Hemostasis was completely achieved. We then irrigated and confirmed full hemostasis. We then closed in layers with 2-0 Vicryl layer to reapproximate the
sternocleidomastoid muscle, followed by 3-0 Vicryl platysma muscle running layer, followed by 4 Monocryl subcuticular stitch. Dermabond was applied. The patient tolerated procedure well. He awoke moving all extremities to command with tongue in
the midline.
[2023-07-25] MEDS: HEPARIN 5000 UNITS SC (17:24)
--- NOTE | 2023-07-25 18:06 | PTCARENOTE ---
Pt continues to rest quietly in bed watching TV. Neuro unchanged. Pt reports 'I feel so much better now than I did earlier (in PACU)'. Using urinal independently to void. Tolerating advanced diet. Nitro gtt remains off. Dr Arroyo in to check on pt. No
new orders received.
--- NOTE | 2023-07-25 20:00 | PTCARENOTE ---
Assumed care of patient at 1900. Patient on bedrest s/p R CEA. Ox3, NSR on monitor +PP, on 2L NC lung sounds diminished sats 96%, voiding clear yellow urine in urinal. R CEA incision site approximated with surgical glue present, CDI. Patient remains
on NSS at 80ml/hr via L hand PIV. R radial A line patent and zeroed at this time, ABP and BP correlating well. Q1 neurochecks as documented, see worklist. Admits to neck 'discomfort' but denies need for medication at this time. Call rocha within
reach, safe environment maintained, care ongoing.
[2023-07-26] VITALS (7 sets, daily range): BP systolic 113–147; BP diastolic 64–86; BMI 23.2
--- NOTE | 2023-07-26 | PTCARENOTE ---
No changes to physical assessment. Patient remains on bedrest s/p R CEA. Right radial patrica zeroed and patent, waveform within normal limits, ABP and BP remain correlating well. Q1 hour neurochecks as documented, see worklist. Voiding in urinal at
bedside. Remains on NSS at 80ml/hr via L hand. VSS, call rocha within reach, continue with current plan.
[2023-07-26] MEDS: HEPARIN 5000 UNITS SC ×2 (01:07→08:15)
--- NOTE | 2023-07-26 04:00 | PTCARENOTE ---
No changes to physical assessment. Neurochecks unchanged, see worklist for documentation. Voiding clear yellow in urinal. Ice pack applied to R CEA incision site. Archana patent and zeroed, labs drawn and sent. NS infusing at 80ml/hr via L Hand PIV.
Patient comfortable in bed, denies need for linen change at this time. VSS, call rocha within place, safety precautions maintained, continue with current care plan.
[2023-07-26 04:33] LABS: Hematocrit 36.2 % (39.0-52.0); Hemoglobin 12.2 g/dL (13.0-18.0); Mean Corp Hgb Conc. 33.7 g/dL (33.0-37.0); Mean Corpuscular Hgb 31.9 pg (27.0-31.0); Mean Corpuscular Volume 94.5 fL (80.0-94.0); Mean Platelet Volume 9.3 fL (7.4-10.4); Platelet Count 267 10^3/uL (130-400); Red Blood Cell Count 3.83 10^6/uL (4.70-6.10); White Blood Cell Count 13.9 10^3/uL (4.8-10.8)
[2023-07-26 04:48] LABS: APTT 31.5 Sec (23.4-35.0); PT 13.2 Sec (11.4-14.6)
[2023-07-26 05:01] LABS: Blood Urea Nitrogen 11 mg/dl (9-20); Calcium 8.9 mg/dl (8.4-10.2); Carbon Dioxide 23 mmol/L (22-30); Chloride 104 mmol/L (98-107); Estimated Creatinine Clearance 109 ml/min; Glucose 112 mg/dl (70-99); Potassium 4.2 mmol/L (3.5-5.1); Sodium 135 mmol/L (135-145); eGFR > 60.00
--- NOTE | 2023-07-26 06:50 | W.PN.VS ---
Addendum entered and electronically signed by Bernard Arroyo MD 07/26/23 08:17:
Seen and examined with ESTER Mota. Agree with findings as noted below. Right neck incision clean dry intact. No hematoma. Neurologically no focal deficits, moves all extremities well, tongue midline. Plan/as discussed and noted below.
Original Note:
Today's Communication / Plan
-
Patient seen and evaluated with Dr. Bernard Arroyo, below plan reviewed with attending.
Assessment/Plan
-
Assessment: 77-year-old male POD #1 right CEA
Plan:
Discontinue arterial line
Discontinue IV fluids
OOB to chair with progression to ambulation as tolerated
Continue aspirin and statin therapy
Possible discharge later this afternoon pending toleration of ambulation
Subjective Data
-
Date of Service: July 26, 2023
Patient seen and evaluated at bedside, no acute events overnight. Patient denies headache, nausea, vomiting, fever, chills, vision changes, and unilateral weakness. Tolerating p.o. diet.
Objective Data
-
Vital Signs
Temp Pulse Resp BP Pulse Ox
97.8 F 77 15 121/83 99
07/26/23 04:21 07/26/23 06:00 07/26/23 06:00 07/26/23 04:00 07/26/23 06:00
Intake and Output
07/24/23 07/25/23 07/26/23
06:59 06:59 06:59
Intake Total 3040 / 3040
Output Total 2875 / 2875
Balance 165 / 165
Intake:
Oral fluids 1560 / 1560
IV fluids (Total) 1480 / 1480
normal saline 1480 / 1480
Output:
Urine, Voided 2875 / 2875
Lab Results
07/26/23 04:13
07/26/23 04:13
Calcium 8.9 mg/dl (8.4-10.2) 07/26/23 04:13
Physical Exam
-
AAOx3, no apparent distress
Face symmetrical, tongue midline, right neck surgical incision CDI, no evidence of hematoma, no edema
No tachycardia
No tachypnea
ABD nondistended
Bilateral upper extremities and lower extremities 5/5 strength and equal
--- NOTE | 2023-07-26 08:00 | PTCARENOTE ---
Received pt @ change of shift, assessment as charted- see flow sheet. Vascular team to bedside this AM, further orders received. R rad A-line d/c'd; pressure held until bleeding ceased and clean dressing applied. IVF d/c'd. Assisted x1 OOB to
chair. Breakfast ordered. Neuro checks completed per orders- see flow sheet. Pt. able to make needs known and educated on how to report care concerns; call rocha placed w in reach.
[2023-07-26] MEDS: THERAGRAN 1 TABLET PO (08:15)
[2023-07-26] MEDS: ASPIR LOW (ENTERIC COATED) 81 MG PO (08:15)
--- NOTE | 2023-07-26 08:30 | W.PN.INTV ---
Today's Communication / Plan
Recommendations
A-line discontinued, Koenig discontinued
Neurological exam nonfocal
Out of bed to chair, ambulate
Chest x-ray, EKG adequate
Disposition efforts
Assessment
-
77-year-old male with history of right carotid stenosis, hypertension/hyperlipidemia, COPD/emphysema status post right carotid endarterectomy 07/25/23 without complication
S/p RCEA 07/25/23
Mild hyponatremia
Appears chronic
Conditions present prior to admission
Hypertension/hyperlipidemia
BPH
Severe emphysema
Mild pulmonary hypertension
60+ pack-year history of smoking, quit 2019
Asbestos exposure history
Plan/recommendations
At this time, patient appears to be stable
Critically ill post right carotid endarterectomy, hemodynamics adequate
Patient had right incisional discomfort, now improved
Describes mild shortness of breath at baseline
Recent hospital stay at 2023 reviewed, treated for COPD exacerbation
Chest x-ray, EKG stable
Moving forward
Continue with supportive care
Out of bed to chair, ambulate. A-line discontinued
Neurological exam nonfocal, follow neurochecks
Hyponatremia appears to be chronic
Continue Symbicort/Spiriva
Patient recently weaned off steroids about 1 month ago
Maintain Trelegy inhaler, patient taking only as needed, this can resume as outpatient.
Reviewed recent CT imaging, severe emphysema, stable nodule noted
Chest x-ray stable
He is due for lung cancer screening August 2023
Recommend follow-up with training and development officer (Reny). Information left in chart
Disposition efforts
Subjective Dataa
Subjective Data
Date of Service:
Date of Service: July 26, 2023
Subjective:
Patient is feeling well. Sitting in chair, eating breakfast without complaints. Had mild headache overnight, resolved
Objective Data
Data Reviewed
Vital Signs / I&O / Oxygen:
Vital Signs
Temp Pulse Resp BP Pulse Ox
97.8 F 62 15 132/80 95
07/26/23 08:03 07/26/23 08:00 07/26/23 08:00 07/26/23 08:00 07/26/23 08:07
Intake and Output
07/25/23 07/26/23 07/27/23
06:59 06:59 06:59
Intake Total 3040 / 3120 440 / 440
Output Total 2875 / 2875 300 / 300
Balance 165 / 245 140 / 140
SaO2 95
Nasal Cannula flow liters per 2
minute
Physical Exam
General: Other (Right carotid incision intact)
HEENT: Normocephalic and Anicteric
Cardiovascular: S1-S2, Regular Rhythm, Murmur (n) and Rub (n)
Respiratory: Wheeze (n), Crackles (n), Rhonchi (n) and Non-Labored Respirations
GI: Soft, Non Distended and Non Tender
Neurology: Awake, Alert and No Motor Deficits
Skin: Cyanosis (n), Jaundice (n) and Rash (n)
Labs/Micro/Reports
Lab Data
07/26/23 04:13
07/26/23 04:13
Laboratory Results
07/25/23 07/26/23
10:30 04:13
PT 13.9 13.2
INR 1.07 1.00
APTT 32.3 31.5
[2023-07-26] MEDS: SYMBICORT 160/4.5 MCG INHALER 2 PUFF INH (09:05)
[2023-07-26] MEDS: SPIRIVA RESPIMAT 2.5 MCG 2 PUFF INH (09:08)
--- NOTE | 2023-07-26 09:47 | PN.CDI ---
CDI
- -
CDI:
Physician Documentation Request
Admit Date: 07/25/23 06:19
Dear MIRTA Lee ,
Please review the following and provide your response in the progress notes.
Clinical Indicators:
Laboratory Tests
07/20/23 07/25/23 07/26/23
09:29 10:30 04:13
Hgb 14.1 12.8 L 12.2 L
Based on the above and your clinical assessment, please clarify in the progress notes, the appropriate diagnosis, if significant, that supports the above abnormalities and additional evaluation, monitoring and/or treatment rendered:
Acute blood loss anemia
Abnormal lab value, clinically insignificant
Other (please specify)
Use of terms such as suspected, likely, concern for, or probable (associated with a specific diagnosis that is being evaluated, monitored, or treated as if it exists) are acceptable and can be coded in the inpatient setting, when documented at the
time of discharge.
Thank you,
Cherie Bhatt RN BSN CCDS
CDI Specialist
please contact via tiger text
Please use your independent medical judgment in providing your response.
--- NOTE | 2023-07-26 10:37 | CM ---
CM following re:discharge planning.
Discussed in Rounds, reviewed pt's chart, met with pt.
Pt is a 77 year old male, admitted with primary dx of POD #1 right CEA. Per Vacular surgery pt most likely will be discharged later today. Pt is aware, expressed his agreement and he stated his adopted son will transport home. IMM reviewed, placed
in chart, pt has a copy.
Pt reports he lives alone in a 2SH, 2 steps to enter, has 2 supportive adopted sons. Pt described himself as independent in all areas [employer], drives. No DME, VN or SNF history.
PCP: Anders Randle
Pharmacy: [facility]
D/C plan: home no needs. Adopted son to transport
--- NOTE | 2023-07-26 12:00 | PTCARENOTE ---
pt. reassessed, no changes in previous assessment. Remains OOB to chair, tolerating ambulation in room. Tolerating diet. Call rocha remains w in reach.
--- NOTE | 2023-07-26 15:39 | PTCARENOTE ---
Discharge instructions completed w pt and friend. Pt. discharged to home via wheelchair with friend. No further needs from this RN.
--- NOTE | 2023-07-26 16:02 | W.DS.TRANS ---
DC Summary - Hazardous Waste Management Specialist
-
Discharge Instructions:
Discharge Diagnosis/Procedures Right carotid endarterectomy
Diet As tolerated
Activity No strenuous activity
Driving Restrictions Not until seen by your Dr
Bathing Restrictions OK to Shower
Instructions:
Stand-Alone Forms: DC Instr - Vascular OR
Changes to Home Medications: Yes
Discharge Medications:
DC Medications w/original date entered in [place]
multivitamin with folic acid 400 mcg tablet (Tab-A-Fifi) 1 tab PO DAILY Supplement 03/28/21
rosuvastatin 40 mg tablet (Crestor) 40 mg PO Q48H High Cholesterol 06/06/23
sildenafil 50 mg tablet 50 mg PO PRN PRN ed 06/06/23
Calcium + D 1 tab PO .OCCASIONALLY Supplement 07/16/23
Chinese Grapeseed 1 tab PO .OCCASIONALLY Supplement 07/16/23
Vision Formula (with lutein) 1 tab PO .OCCASIONALLY Supplement 07/16/23
aspirin 81 mg tablet 81 mg PO DAILY Blood Clot Prevention/Tx 07/16/23
ipratropium 0.5 mg-albuterol 3 mg (2.5 mg base)/3 mL nebulization soln 3 ml inhalation .Q6HPRN PRN shortness of breath or wheezing 07/16/23
fluticasone fur. 200 mcg-umeclid 62.5 mcg-vilant 25 mcg inhalat.powder (Trelegy Ellipta) 1 inh inhalation DAILY Lung/Breathing Issues 07/25/23
Home Medication Changes
Hold:
sildenafil 50 mg tablet 50 mg PO PRN PRN ed 06/06/23
Pending Results: No
--- NOTE | 2023-07-26 16:03 | W.DCSUMMARY ---
Discharge Summary
Discharge Data
Date of Admission: 07/25/23
Date of Discharge: 07/26/23
-
Pending Results: No
Hospital Course
Attending: Dr. Bernard Arroyo
Consultants: Pulmonary medicine
Allergies: statins
Procedure with date: Right carotid endarterectomy with bovine pericardial patch angioplasty and intraoperative EEG/SSEP monitoring. On 07/25/[address] Bernard Arroyo
History of present illness: The patient is an 77-year-old male with multiple medical conditions including: carotid stenosis, BPH, tobacco abuse, hyperlipidemia, bacterial prostatitis, heart murmur, COPD, and aortic valve stenosis. Patient presented
on 07/25/2023 for scheduled procedure with Dr. Bernard Arroyo. Patient presented at baseline health with no reports of recent illness or trauma.
Hospital Course: Briefly, the patient underwent scheduled right carotid endarterectomy without complications, and recovered in PACU. Following recovery phase one and two patient was transferred to intensive care unit per protocol for continued
hemodynamic monitoring. Distribution Manager consulted to aid in medical management from a critical care perspective. POD #1 (07/26/2023) Patient neurologically intact, face symmetrical, and tolerating PO diet. Surgical right neck incision clean, dry, and
intact with suture line well approximated and soft. No evidence of hematoma. Arterial line and IV fluids discontinued. Patient able to ambulate without difficulty or incident. Patient stable for discharge to home.
Prescriptions and follow up appointment are included in the DC summary yeast culture developer note. All instructions were given to the patient in both written and verbal form and the patient expressed understanding.
Discharge Plan
-
Patient Disposition: Home (Routine Discharge)
Discharge Diagnosis/Procedures: Right carotid endarterectomy
Condition: Good
Diet: As tolerated
Activity: No strenuous activity
Driving Restrictions: Not until seen by your Dr
Bathing Restrictions: OK to Shower
Activity Restrictions/Additional Instructions:
If you experience severe constant headache, weakness to an arm or leg, change in vision, trouble speaking or any stroke-like symptom, call 911 immediately
If you experience swelling, increased bruising, drainage from neck site, or fever, please call the office
Stand Alone Forms: DC Instr - Vascular OR
Referrals:
Yeni Pacheco PA-C [Specified Professional Personl] - 08/08/23 9:30 am
Tasha Sue DO [Active] -
(appt in September 2023
Due for LDCT for lung Cancer screening prior to visit)
Anders Randle MD [Family Provider] -
Prescriptions:
Continued
multivitamin with folic acid [Tab-A-Fifi] 1 TABLET tablet
1 tab PO DAILY
rosuvastatin [Crestor] 40 mg Tablet
40 mg PO Q48H
aspirin 81 mg Tablet
81 mg PO DAILY
Calcium + D
1 tab PO .OCCASIONALLY
Azeri Grapeseed
1 tab PO .OCCASIONALLY
Vision Formula (with lutein)
1 tab PO .OCCASIONALLY
ipratropium-albuterol 0.5 mg-3 mg(2.5 mg base)/3 mL solution for nebulization
3 ml inhalation .Q6HPRN PRN (Reason: shortness of breath or wheezing)
Trelegy Ellipta 200-62.5-25 mcg blister with device
1 inh INHALATION DAILY
Held
sildenafil 50 mg Tablet
50 mg PO PRN PRN (Reason: ed)
Hold Instructions: Resume on 08/14/23. Can resume once cleared following postoperative visit
Discharge Orders:
Discharge Patient (As Directed); Ordered 07/26/23
Ordered By: Jazlyn Mota
Discharge Date and Time
Print Language: BANGLADESHI
--- NOTE | 2023-07-31 14:12 | W.PN.UPDATE ---
Update Note
Progress Note Update
In response to CDI:
Clinical Indicators:
Laboratory Tests
07/20/23 07/25/23 07/26/23
09:29 10:30 04:13
Hgb 14.1 12.8 L 12.2 L
Based on the above and your clinical assessment, please clarify in the progress notes, the appropriate diagnosis, if significant, that supports the above abnormalities and additional evaluation, monitoring and/or treatment rendered:
Abnormal lab value, clinically insignificant; likely hemodilutional following IV fluids. Remained stable with repeat monitoring the following day.
== END 2023-07-26 16:05 | disposition home or self-care (01) | DRG 38 ==
LOC: ICU 06:19
PROVIDERS: Nurse Practitioner Acute Care; ADMITTING PHYSICIAN Surgery Vascular Surgery; CONSULT PHYSICIAN Internal Medicine Critical Care Medicine; FAMILY PHYSICIAN Family Medicine
PROC: 03UK0KZ Supplement Right Internal Carotid Artery with Nonautologous Tissue Substitute, Open Approach (ICD-10-PCS; 2023-07-25)
PROC: 03CK0ZZ Extirpation of Matter from Right Internal Carotid Artery, Open Approach (ICD-10-PCS; 2023-07-25)
DX: I65.21 Occlusion and stenosis of right carotid artery (principal); E87.1 Hypo-osmolality and hyponatremia; N13.8 Other obstructive and reflux uropathy; E78.5 Hyperlipidemia, unspecified; I10 Essential (primary) hypertension; J43.9 Emphysema, unspecified; N40.1 Benign prostatic hyperplasia with lower urinary tract symptoms; I27.20 Pulmonary hypertension, unspecified; I35.0 Nonrheumatic aortic (valve) stenosis; Z77.090 Contact with and (suspected) exposure to asbestos; Z90.79 Acquired absence of other genital organ(s); Z79.82 Long term (current) use of aspirin; Z88.8 Allergy status to other drugs, medicaments and biological substances; Z87.891 Personal history of nicotine dependence
CPT/HCPCS: 88304; 88311; 35301; 36415; 71045; 80048; 85025; 85027; 85610; 85730; 86850; 86900; 86901; 93005; 94640

== ENCOUNTER → 2023-09-07 09:46 | Outpatient (REF) | payer OTHER, SELFPAY | LOC: RAD 09:46 | PROVIDERS: ATTENDING PHYSICIAN Nurse Practitioner Family; FAMILY PHYSICIAN Family Medicine | DX: Z87.891 Personal history of nicotine dependence (principal); I65.21 Occlusion and stenosis of right carotid artery; I77.1 Stricture of artery | CPT/HCPCS: 71271; 93880; 93923; 93930 ==

== ENCOUNTER → 2023-10-30 06:31 | Day surgery (SDC) | payer OTHER, SELFPAY | LOC: GI 06:31 | PROVIDERS: ATTENDING PHYSICIAN Specialist | DX: R10.13 Epigastric pain (principal); K31.89 Other diseases of stomach and duodenum; Q39.6 Congenital diverticulum of esophagus | CPT/HCPCS: 43239; 88305; 88342 ==

== ENCOUNTER → 2024-03-21 09:31 | Outpatient (REF) | payer OTHER, SELFPAY | LOC: RAD 09:31 | PROVIDERS: ATTENDING PHYSICIAN Surgery Vascular Surgery; FAMILY PHYSICIAN Family Medicine | DX: I65.21 Occlusion and stenosis of right carotid artery (principal); I77.1 Stricture of artery | CPT/HCPCS: 93880 ==

== ENCOUNTER → 2024-09-19 09:53 | Outpatient (REF) | payer OTHER, SELFPAY | LOC: HWRAD 09:53 | PROVIDERS: ATTENDING PHYSICIAN Nurse Practitioner Family; FAMILY PHYSICIAN Family Medicine | DX: Z87.891 Personal history of nicotine dependence (principal) | CPT/HCPCS: 71271 ==

== ENCOUNTER → 2024-10-02 08:54 | Outpatient (REF) | payer OTHER, SELFPAY | LOC: RAD 08:54 | PROVIDERS: ATTENDING PHYSICIAN Registered Nurse; FAMILY PHYSICIAN Family Medicine | DX: I65.21 Occlusion and stenosis of right carotid artery (principal) | CPT/HCPCS: 93880 ==

== ENCOUNTER → 2025-01-27 09:33 | Outpatient (REF) | payer OTHER, SELFPAY | LOC: PET 09:33 | PROVIDERS: ATTENDING PHYSICIAN Nurse Practitioner Gerontology | DX: R06.02 Shortness of breath (principal); R94.39 Abnormal result of other cardiovascular function study | CPT/HCPCS: 78431; A9555; J2785 ==

== ENCOUNTER → 2025-01-30 07:40 | Outpatient (REF) | payer OTHER, SELFPAY | LOC: RCS 07:40 | PROVIDERS: ATTENDING PHYSICIAN Nurse Practitioner Gerontology; FAMILY PHYSICIAN Family Medicine | DX: R06.02 Shortness of breath (principal); R94.39 Abnormal result of other cardiovascular function study | CPT/HCPCS: 93306 ==

== ENCOUNTER → 2025-04-03 08:36 | Outpatient (REF) | payer OTHER, SELFPAY | LOC: DHVS 08:36 | PROVIDERS: ATTENDING PHYSICIAN Surgery Vascular Surgery; FAMILY PHYSICIAN Family Medicine | DX: I65.21 Occlusion and stenosis of right carotid artery (principal) | CPT/HCPCS: 93880 ==